=== PATIENT | female | born 1975 | race Caucasian/White ===

== ENCOUNTER 2019-08-29 00:55 | Day surgery (SDC) | payer OTHER, SELFPAY ==
[2019-08-25 10:07] VITALS: BMI 27.6
--- NOTE | 2019-08-29 07:21 | PM.HPGS ---
History of Present Illness History of Present Illness Consent: Risks, benefits, and alternatives have been discussed and questions answered. Patient agrees to proceed with procedure. Chief complaint: cervical stenosis, atypic gland cells, Narrative: Avelina Pierre is a 43 year old female with abnormal pap test. 08/14 reading is SINDY, favor neoplastic and ASC-cannot exclude high grade. Patient last pap was normal 01/26/19. Prior pap 08/26 was SINDY and had colposcopy with ECC that was normal and hysteroscopy that appeared scarred consistent with prior ablation. During that case, there was a perforation so endometrial sampling not possible. Patient did no show then cancel repeat pap 04/27. Patient without complaints and no bleeding. [facility] Past Medical History Medical History (Updated 08/29/19 @ 07:27 by Terri Shaikh MD) Asthma Migraine Status post hysteroscopy Surgical History Surgical History (Updated 08/29/19 @ 07:26 by Terri Shaikh MD) S/P breast augmentation S/P endometrial ablation S/P laparoscopy S/P tubal ligation Meds Home Medications and Allergies Home Medications Medication Instructions Recorded Confirmed Type Adult One Daily Multivitamin 1 tab-cap BYMOUTH DAILY 08/25/19 08/25/19 History albuterol sulfate [ProAir HFA] 1 inh INHALATION DAILY 08/25/19 08/25/19 History aspirin [Adult Low Dose Aspirin] 81 mg PO DAILY 08/25/19 08/25/19 History budesonide-formoterol [Symbicort] 1 puff INHALATION DAILY 08/25/19 08/25/19 History calcium carbonate [Calcium 600] 1 mg PO DAILY 08/25/19 08/25/19 History montelukast 10 mg PO DAILY 08/25/19 08/25/19 History potassium gluconate 550 mg PO DAILY 08/25/19 08/25/19 History Allergies Allergy/AdvReac Type Severity Reaction Status Date / Time hydrocodone Allergy Severe Rash Verified 08/29/19 07:27 tramadol Allergy Severe RASH, Verified 08/29/19 07:27 NAUSEA AND VOMITING Exam Const: General: healthy appearing and alert Orientation/consciousness: patient oriented x3 Resp: Effort & Inspection: normal respiratory effort Auscultation: clear to auscultation bilaterally Cardio: Rate: regular rate Rhythm: regular rhythm GI: GI Palp: Yes Soft to palpation, No Tenderness to palpation present (GI) and No Palpable mass present : External Female Exam: normal external appearance Speculum Exam - Vagina: normal appearance of the vagina and normal vaginal discharge Speculum Exam - Cervix: normal appearance of the cervix Bimanual exam- vagina & uterus: uterine size normal and consistency normal Bimanual Exam- Adnexa, other: normal adnexae and No adnexal tenderness Neuro: General: patient oriented x3 Assessment and Plan Assessment and plan (1) SINDY favor dysplasia: Status: Acute Assessment and Plan: Plan D&C hysteroscopy with ECC. Risks of infection, bleeding, perforation, and possible pathology reviewed. (2) ASCUS favoring dysplasia: Status: Acute Assessment and Plan: Plan colposcopy
[2019-08-29 07:25] VITALS: BMI 28.1
--- NOTE | 2019-08-29 07:30 | P.PNAN_ITS ---
Anes - Initial Pre Proc Eval Procedure: Operation Date: 08/29/19 09:00 Proposed Procedures p Hysteroscopy, Dilation and Curettage, Colposcopy, Endocervical Curettage - Terri Shaikh MD Date/Time: 08/29/19 07:30 Surgeon: Terri Shaikh MD Pre Op Diagnosis: cervical stenosis, atypic gland cells, Patient Data Age: 43 Gender: F Height: 5 ft 4 in Weight: 74.4 kg Allergies Allergy/AdvReac Type Severity Reaction Status Date / Time hydrocodone Allergy Severe Rash Verified 08/29/19 07:27 tramadol Allergy Severe RASH, Verified 08/29/19 07:27 NAUSEA AND VOMITING Home Medications Medication Instructions Recorded Confirmed Type Adult One Daily Multivitamin 1 tab-cap BYMOUTH DAILY 08/25/19 08/25/19 History albuterol sulfate [ProAir HFA] 1 inh INHALATION DAILY 08/25/19 08/25/19 History aspirin [Adult Low Dose Aspirin] 81 mg PO DAILY 08/25/19 08/25/19 History budesonide-formoterol [Symbicort] 1 puff INHALATION DAILY 08/25/19 08/25/19 History calcium carbonate [Calcium 600] 1 mg PO DAILY 08/25/19 08/25/19 History montelukast 10 mg PO DAILY 08/25/19 08/25/19 History potassium gluconate 550 mg PO DAILY 08/25/19 08/25/19 History Patient hx anesthesia problems: none Family hx anesthesia problems: none [facility] Past Medical History Medical History (Updated 08/29/19 @ 07:27 by Terri Shaikh MD) Asthma Migraine Status post hysteroscopy Surgical History Surgical History (Updated 08/29/19 @ 07:26 by Terri Shaikh MD) S/P breast augmentation S/P endometrial ablation S/P laparoscopy S/P tubal ligation Anes - Eval Final PreProcedure Day of Procedure 08/29/19 07:30 Patient weight: normal Heart: regular rate and rhythm Lungs: clear to auscultation Airway: Mallampati scale class II Neurological: alert and oriented Last oral intake: >/= 8 hours ASA classification: II Emergent: no Anesthetic plan: proceed Anesthesia type and monitoring: general GIVS Informed Consent: The patient's anesthetic plan and its attendant risks and benefits were discussed with the patient/family/POA. Questions were solicited and answers provided to the satisfaction of the patient/family/POA.
[2019-08-29 07:45] VITALS: BP 126/84; PULSE 87; RESP 16; TEMP 36.4; O2SAT 99
[2019-08-29] MEDS: LACTATED RINGERS 1,000 ML 30 ML IV CONT (07:45)
--- NOTE | 2019-08-29 08:48 | SUR.OPER ---
EBL:10CC
--- NOTE | 2019-08-29 08:52 | PM.OP ---
Procedure Note - Brief Procedure Note - Brief Date of procedure: 08/29/19 Pre-op diagnosis: cervical stenosis, atypic gland cells, SINDY, favor neoplasia ASC-r/o high grade Post-op diagnosis: same Procedure performed: colposcopy; ECC; hysteroscopy with D&C Anesthesia: MAC and local Surgeon: Terri Shaikh MD Estimated blood loss (mL): 5 Drains: No Packing: No Pathology: yes (cervical biopsy at 500; ECC; endometrial curettings) Complications: No immediate complications Condition: stable Disposition: PACU Findings: colposcopy with AWE inside TZ at 500; atrophic and scarred endometrium consistent with pior ablation
[2019-08-29 08:57] VITALS: BP 119/73; PULSE 80; RESP 16; O2SAT 99
[2019-08-29 09:25] VITALS: BP 111/93; PULSE 73; RESP 16; O2SAT 99
[2019-08-29 09:35] VITALS: BP 116/75; PULSE 68; RESP 16
--- NOTE | 2019-08-29 09:40 | OP_ITS ---
DATE OF PROCEDURE: 08/29/2019 PREOPERATIVE DIAGNOSIS: Atypical glandular cells favor neoplasia and atypical squamous cells, cannot rule out high-grade dysplasia on most recent Pap test. POSTOPERATIVE DIAGNOSIS: Atypical glandular cells favor neoplasia and atypical squamous cells, cannot rule out high-grade dysplasia on most recent Pap test. PROCEDURE: 1. Colposcopy. 2. Endocervical curettings. 3. Hysteroscopy with D and C. ANESTHESIA: MAC and local. FINDINGS: Colposcopy findings reveal the aceto-white epithelium noted inside of the transformation zone at 5 o'clock. There is a slight mosaic pattern as well to this area. The remainder of the cervix appears normal by colposcopy exam. Entire transformation zone is visible. Hysteroscopic findings reveal atrophic and scarred endometrium with no lesions. ESTIMATED BLOOD LOSS: 5 cc. PATHOLOGY: Colposcopic biopsy of the cervix at 5 o'clock, endocervical curettings, endometrial curettings. DESCRIPTION OF PROCEDURE: The patient was taken to the operating room, placed in the dorsal lithotomy position. She was prepped and draped in usual sterile fashion. Externally, the bivalved speculum was placed in the vagina. Cervix was swabbed with acetic acid and inspected with the colposcope. Abnormalities as above. Biopsy was taken at 5 o'clock. The endocervical curettings were taken. The cervix to the internal os was dilated. The hysteroscope was placed. The internal os was visible and the camera was able to be guided directly into the internal os. The above-stated findings were noted with no lesions. Hysteroscope was removed. The small curette is used to sharply curette the endometrium. Minimal tissue was obtained consistent with the appearance. All instruments were then removed. The patient was taken to Recovery in stable condition. D I MT: Ledy LOPEZ
== END 2019-08-29 09:44 | disposition home or self-care (01) ==
PROVIDERS: PCP Family Medicine; Visit Provider Obstetrics & Gynecology Gynecology
PROC: 0U5B8ZZ Destruction of Endometrium, Via Natural or Artificial Opening Endoscopic (ICD-10-PCS; CPT 58563; principal; 2019-08-29 09:00)
DX: N87.0 Mild cervical dysplasia (principal); J45.909 Unspecified asthma, uncomplicated; Z79.82 Long term (current) use of aspirin
CPT/HCPCS: 57454; 58558; 88305; A9270; J1100; J2250; J2405; J2704; J3010; J7030; J7120

== ENCOUNTER → 2020-04-08 13:12 | Outpatient (CLI) | payer OTHER, SELFPAY ==
--- NOTE | ~2020-04-08 | MM_ITS ---
EXAMINATION: MM scrn crow implant BI w juany HISTORY: Screening mammogram TECHNIQUE: Craniocaudal and mediolateral oblique 3-D tomosynthesis images with implant displacement a nd synthetic 2-D images were generated. Craniocaudal and mediolateral oblique views of the breasts wi thout implant displacement were obtained using full field digital mammography. CAD analysis was submi tted and interpreted. COMPARISON: 09/26/2018, 09/09/2016 bilateral implant digital screening mammogram examinations BREAST PARENCHYMAL COMPOSITION: There are scattered areas of fibroglandular density. FINDINGS: Status post bilateral augmentation mammoplasty. There is no evidence of suspicious mass, ca lcification, or architectural distortion to suggest malignancy in either breast. There has been no lange spicious interval change. IMPRESSION: 1. No mammographic evidence of malignancy. 2. Recommend routine screening mammography in one year. BI-RADS Category 1: Negative Reviewed, dictated and finalized at location A. [employer]
== END ==
PROVIDERS: PCP Family Medicine; Visit Provider Obstetrics & Gynecology Gynecology
DX: Z12.31 Encounter for screening mammogram for malignant neoplasm of breast (principal)
CPT/HCPCS: 77063; 77067

== ENCOUNTER 2021-10-12 17:34 | Inpatient (IN) | payer OTHER, SELFPAY ==
[2021-10-12] VITALS (11 sets, daily range): BP systolic 112–141; BP diastolic 53–86; PULSE 89–106; RESP 18–23; TEMP 36.4–36.7; O2SAT 95–100; BMI 28.4
--- NOTE | ~2021-10-12 | CT_ITS ---
EXAMINATION: CT abdomen pelvis wo con DATE: 10/12/2021 18:43 INDICATION: low abd pain, leukocytosis TECHNIQUE: Computed tomography (CT) of the abdomen and pelvis was performed without intravenous contr ast. Automated exposure control and iterative reconstruction technique were employed. The dose-length product was 606.00 mGy-cm. COMPARISON: None FINDINGS: Lower thorax: Unremarkable Liver: Normal. Biliary/Gallbladder: No bile duct dilation. Pancreas: No mass or duct dilation. Spleen: Normal. Adrenals:No mass. Kidneys: No mass, stone, or hydronephrosis. GI tract: No small or large bowel dilation. The appendix is dilated up to 1.5 cm in maximum diameter and contains an appendicolith, with mild surrounding inflammatory change. Mesentery/Peritoneum: No ascites, mass, or free air. Retroperitoneum: No mass. Pelvis: Uterus is not confidently visualized, may be due to lack of contrast or prior surgery. 4 cm s imple appearing right adnexal cyst. Soft Tissues: Soft tissues and body wall unremarkable. Bones: No acute osseous finding. IMPRESSION: Acute appendicitis. 4 cm simple appearing right adnexal cyst, consider outpatient pelvic ultrasound f or further characterization. Reviewed, dictated and finalized at location K. IMPRESSION: Acute appendicitis. 4 cm simple appearing right adnexal cyst, consider outpatie nt pelvic ultrasound for further characterization.
--- NOTE | ~2021-10-12 | XR_ITS ---
EXAMINATION: XR abdomen obstructive series DATE: 10/16/2021 06:39 INDICATION: Emesis. Nausea. TECHNIQUE: Upright and supine views of the abdomen on 3 radiographs were obtained. COMPARISON: CT abdomen and pelvis 10/12/2021 FINDINGS: There are multiple dilated loops of small bowel. The colon is normal in caliber. No free in traperitoneal gas. There is a surgical drain overlying the pelvis. There is mild atelectasis at the l danuta bases. Breast implants are noted. IMPRESSION: 1. Dilated small bowel, likely adynamic ileus. Reviewed, dictated and finalized at location A.
--- NOTE | ~2021-10-12 | US_ITS ---
US pelvic complete w TV 10/13/2021 08:31 Indication: Right ovarian cyst. Procedure: High-resolution pelvic ultrasound utilizing transabdominal and transvaginal technique Comparison: CT dated 10/12/2021 Findings: Uterus is surgically absent. Right ovary measures 4.3 x 6 x 4.4 cm with multiple complicate d cysts, likely functional. The largest cystic component measures up to 4 cm. Small amount of free fl uid in the right adnexa. The left ovary is not visualized. Impression: 1: Enlarged right ovary containing complicated cysts, largest measuring up to 4 cm, likely functional . Recommend follow-up ultrasound in 6-8 weeks to assess for resolution. Reviewed, dictated and finalized at location B. Impression: 1: Enlarged right ovary containing complicated cysts, largest measuring up to 4 cm, likely functional. Recommend follow-up ultrasound in 6-8 weeks to assess f or resolution.
[2021-10-12 18:04] LABS: Alanine Aminotransferase 21 U/L (6-35); Albumin Level 4.5 g/dL (3.5-5.1); Alkaline Phosphatase 52 U/L (38-126); Anion Gap 9 mmol/L (8-16); Aspartate Amino Transferase 22 U/L (14-36); Bilirubin,Total 0.9 mg/dL (0.2-1.3); Blood Urea Nitrogen 6 mg/dL (7-17); Calcium 8.8 mg/dL (8.4-10.2); Carbon Dioxide 27 mmol/L (22-30); Chloride 98 mmol/L (98-107); Estimated CRCL calculation 77 ml/min; Estimated Glomerular Filt Rate > 60; Glucose 135 mg/dL (65-110); Lipase 32 U/L (23-300); Potassium 3.7 mmol/L (3.4-5.0); Sodium 134 mmol/L (137-145)
[2021-10-12 18:16] LABS: Basophils Percent Auto 0.2 % (0.2-1.2); Eosinophils Percent Auto 0.1 % (0-4.4); Hemoglobin 14.4 g/dL (12.0-15.0); Immature Granulocyte Absolute 0.08 K/mm3 (0.00-0.031); Immature Granulocyte Percent A 0.5 % (0-0.5); Lymphocytes Absolute Auto 0.76 K/mm3 (0.9-3.2); Lymphocytes Percent Auto 4.5 % (18.3-44.2); Mean Corpuscular HGB Conc 33.5 g/dl (32-36); Mean Corpuscular Hemoglobin 33.2 pg (26-34); Mean Corpuscular Volume 99.1 fl (80-100); Mean Platelet Volume 11.3 fl (7.4-10.4); Monocytes Absolute Auto 1.3 K/mm3 (0.1-0.6); Monocytes Percent Auto 7.5 % (2.6-8.5); Neutrophils Absolute Auto 14.9 K/mm3 (1.3-6.7); Neutrophils Percent Auto 87.2 % (45.5-73.1); Platelet Count Result 239 k/mm3 (150-375); Red Blood Count 4.34 M/mm3 (4.2-5.4); Red Cell Distribution Width 11.9 % (11.5-14.5)
[2021-10-12 18:28] LABS: Platelet Estimate Adequate (Adequate); Stomatocytes 1+ (NORMAL)
[2021-10-12] MEDS: SODIUM CHLORIDE 0.9% IV 1,000 ML 999 ML IV CONT ×2 (19:03→22:06)
[2021-10-12] MEDS: MORPHINE SULFATE (*CRX) 4 MG/ML INJ IV PUSH ×2 (19:04→22:59)
[2021-10-12] MEDS: ONDANSETRON INJ 4 MG/2 ML VIAL IV PUSH (19:04)
--- NOTE | 2021-10-12 19:09 | ED.ABDPAIN ---
HPI - Abdominal Pain General Chief Complaint: Abdominal Pain <JOSE House Last Filed: 10/12/21 21:39> Stated Complaint: abd pain <JOSE House Last Filed: 10/12/21 21:39> Time Seen by Provider: 10/12/21 18:14 <JOSE House Last Filed: 10/12/21 21:39> Source: patient <JOSE House Last Filed: 10/12/21 21:39> Mode of arrival: ambulatory <JOSE House Last Filed: 10/12/21 21:39> Limitations: no limitations <JOSE House Last Filed: 10/12/21 21:39> History of Present Illness HPI narrative: This is a 46-year-old female that presents to the emergency department for right lower quadrant pain. Ongoing over the last day. Associated with nausea and anorexia Denies fever, vomiting, or dysuria. <JOSE House Last Filed: 10/12/21 21:39> Related Data Home Medications: Home Medications Medication Instructions Recorded Confirmed Adult One Daily Multivitamin 1 tab-cap BYMOUTH DAILY 08/25/19 08/29/19 albuterol sulfate 90 mcg/actuation 1 inh inhalation DAILY 08/25/19 08/29/19 aerosol inhaler (ProAir HFA) aspirin 81 mg tablet,delayed 81 mg PO DAILY 08/25/19 08/29/19 release (Adult Low Dose Aspirin) budesonide-formoterol HFA 80 1 puff inhalation DAILY 08/25/19 08/29/19 mcg-4.5 mcg/actuation aerosol inhaler (Symbicort) calcium carbonate 600 mg calcium 1 mg PO DAILY 08/25/19 08/29/19 (1,500 mg) tablet (Calcium) montelukast 10 mg tablet 10 mg PO DAILY 08/25/19 08/29/19 potassium gluconate 550 mg (90 mg) 550 mg PO DAILY 08/25/19 08/29/19 tablet <JOSE House Last Filed: 10/12/21 21:39> Allergies/Adverse Reactions: Allergies Allergy/AdvReac Type Severity Reaction Status Date / Time hydrocodone Allergy Severe Rash Verified 10/12/21 17:43 tramadol Allergy Severe RASH, Verified 10/12/21 17:43 NAUSEA AND VOMITING <Demi Lee PA-C - Last Filed: 10/12/21 21:39> Review of Systems Review of Systems: CONSTITUTIONAL: Denies fever GASTROINTESTINAL: Reports abdominal pain, nausea. Denies vomiting, or diarrhea. GENITOURINARY: Denies dysuria or hematuria. <Demi Lee PA-C - Last Filed: 10/12/21 21:39> All systems reviewed & are unremarkable except as noted in HPI and below <Demi Lee PA-C - Last Filed: 10/12/21 21:39> PMFSH Past Medical History Medical History: Medical History (Updated 10/12/21 @ 21:34 by Demi Lee PA-C) Asthma Migraine Status post hysteroscopy <Demi Lee PA-C - Last Filed: 10/12/21 21:39> Surgical History Surgical History: Surgical History (System 10/09/20 @ 10:38 by Yamile Morales) S/P breast augmentation S/P endometrial ablation S/P laparoscopy S/P tubal ligation <Demi Lee PA-C - Last Filed: 10/12/21 21:39> Family History Family History: Family History (System 10/09/20 @ 10:38 by Yamile Morales) Grandparent Family history of pancreatic cancer Family history of malignant neoplasm of uterus Other Family history of malignant neoplasm of breast <Demi Lee PA-C - Last Filed: 10/12/21 21:39> Social History Social History: Social History (System 10/09/20 @ 10:38 by Yamile Morales) Alcohol intake: current <Demi Lee PA-C - Last Filed: 10/12/21 21:39> Exam Narrative: GENERAL: Well-appearing, well-nourished, and in mild acute distress due to pain. HEAD: Normocephalic, atraumatic. EYES: EOMI. CHEST: Clear to auscultation. No respiratory distress. No wheezes rales or rhonchi HEART: Regular rate and rhythm. No murmur heard. Normal peripheral pulses. ABDOMEN: Soft, nondistended, normal active bowel sounds. Tender to palpation in the right lower quadrant with guarding EXTREMITIES: Normal range of motion. No edema. SKIN: Warm, dry, no rash. NEURO: No focal deficits. Alert and oriented x3. PSYCH: Normal mood and affect <Demi Trejo
[2021-10-12] MEDS: HYDROmorphone HCL INJ (*CRX) 1 MG/ML SYR 0.5 MG IV PUSH ×2 (19:22→21:26)
[2021-10-12 21:40] LABS: Appearance Urine Clear (Clear); Bilirubin Urine Negative (Negative); Blood Urine Negative (Negative); Color Urine Yellow (Yellow); Glucose Urine UA Negative (Negative); Ketones Urine 3+ mg/dL (Negative); Leukocyte Esterase Ur Negative LEU/UL (Negative); Nitrate Urine Negative (Negative); Protein Urine Negative (Negative); Urobilinogen Urine 0.2 mg/dL (<2.0)
[2021-10-12 21:48] LABS: Mucus Urine Rare /lpf; RBC Urine 0-2 /hpf (0-2); Squamous Epithelial Cell Urine Occasional /hpf (Few); WBC Urine 0-3 /hpf
[2021-10-12 21:52] LABS: Add Urine Microscopic? YES
--- NOTE | 2021-10-12 22:54 | ADMGEN ---
This patient, Avelina Pierre, was admitted to Medical Room 249-01. Patient/family oriented to hospital policies and general routines including ID bracelet, bed and alarms, visiting hours, pain management, procedures, bathroom and other care routines, personal items, smoking policy, room service/diet, and visiting hours. Information on how to activate the Rapid Response Team has been discussed. Patient/Family are encouraged to report perceived risks to care and to ask questions if they do not understand what they are told or what they should do.
[2021-10-12] MEDS: SODIUM CHLORIDE 0.9% IV 1,000 ML 125 ML IV CONT (23:10)
[2021-10-13] VITALS (15 sets, daily range): BP systolic 110–138; BP diastolic 65–87; PULSE 87–112; RESP 13–18; TEMP 34.1–36.9; O2SAT 91–100
[2021-10-13] MEDS: MORPHINE SULFATE (*CRX) 4 MG/ML INJ IV PUSH ×6 (00:03→23:46)
--- NOTE | 2021-10-13 03:54 | PC.NURSE ---
DR PARTIDA NOTIFIED PT INCREASED PAIN AND DISCOMFORT, BLOATING NOTED, VERY RARE GIRGLE NOTED IN LEFT LOWER QUADRANT, ABSENT IN ALL OTHER QUADRANTS, ZOFRAN ORDERED
[2021-10-13 05:47] LABS: Hematocrit 39.1 % (37.0-47.0); Hemoglobin 12.8 g/dL (12.0-15.0); Mean Corpuscular HGB Conc 32.7 g/dl (32-36); Mean Corpuscular Volume 100.8 fl (80-100); Mean Platelet Volume 11.2 fl (7.4-10.4); Platelet Count Result 213 k/mm3 (150-375); Red Blood Count 3.88 M/mm3 (4.2-5.4); Red Cell Distribution Width 12.2 % (11.5-14.5); White Blood Count 8.9 K/mm3 (4.5-10.0)
[2021-10-13 06:00] LABS: Anion Gap 6 mmol/L (8-16); Blood Urea Nitrogen 5 mg/dL (7-17); Calcium 7.1 mg/dL (8.4-10.2); Carbon Dioxide 24 mmol/L (22-30); Chloride 104 mmol/L (98-107); Estimated CRCL calculation 91 ml/min; Estimated Glomerular Filt Rate > 60; Glucose 124 mg/dL (65-110); Potassium 3.5 mmol/L (3.4-5.0); Sodium 134 mmol/L (137-145)
[2021-10-13 07:26] LABS: Band Neutrophils Percent 20 % (0-6); Lymphocytes Absolute Manual 0.71 K/mm3 (1.1-4.5); Lymphocytes Percent Manual 8 % (18-44); Monocytes Absolute Manual 0.26 K/mm3 (0.1-0.90); Monocytes Percent Manual 3 % (3-9); Neutrophils Absolute Manual 7.92 K/mm3 (1.7-7.2); Neutrophils Percent Manual 69 % (46-73); Platelet Estimate Adequate (Adequate); Total Cells Counted 100
[2021-10-13] MEDS: SODIUM CHLORIDE 0.9% IV 1,000 ML 125 ML IV CONT ×2 (08:35→23:42)
[2021-10-13] MEDS: ALBUTEROL SULFATE (*SP) AEROSOL 1 PUFF 2 PUFF INHALATION (08:46)
--- NOTE | 2021-10-13 09:02 | PM.CNCAR ---
History of Present Illness History of Present Illness Consult date/time: 10/13/21 09:02 Consult reason: Other (ovarian cyst) Reason For Visit: Acute Appendicitis Narrative: Patient is visiting from [place] and had the onset of pain approximately 2 days prior. Workup revealed a 4cm right ovarian cyst. Ultrasound this morning shows a simple ovarian cyst measuring 4cm as well as several subcentimeter cysts. Most likely functional. Dr. Maza plans to proceed with appendectomy therefore I will evaluate the right ovary and drain the functional cyst due to its size. This additional plan was discussed with the patient. It was recommended to leave the ovary in place but there is a small chance of bleeding from the ovary that would require removal. Additional risks are minimal to the planned appendectomy. Patient voiced understanding and agrees to proceed. [facility] Past Medical History Medical History (Updated 10/12/21 @ 21:34 by Demi Lee PA-C) Asthma Migraine Status post hysteroscopy Surgical History Surgical History (System 10/09/20 @ 10:38 by Yamile Morales) S/P breast augmentation S/P endometrial ablation S/P laparoscopy S/P tubal ligation Family History Family History Grandparent Family history of pancreatic cancer Family history of malignant neoplasm of uterus Other Family history of malignant neoplasm of breast Social History Social History (System 10/09/20 @ 10:38 by Yamile Morales) Smoking status: Never smoker Alcohol intake: current Drinks per week: 3 Substance use: never Substance use type: does not use Spiritual care concerns: No Meds Home Medications and Allergies Home Medications Medication Instructions Recorded Confirmed Type Adult One Daily Multivitamin 1 tab-cap BYMOUTH DAILY 08/25/19 10/12/21 History albuterol sulfate 90 mcg/actuation 1 inh inhalation DAILY 08/25/19 10/12/21 History aerosol inhaler (ProAir HFA) aspirin 81 mg tablet,delayed 81 mg PO DAILY 08/25/19 10/12/21 History release (Adult Low Dose Aspirin) budesonide-formoterol HFA 80 1 puff inhalation DAILY 08/25/19 10/12/21 History mcg-4.5 mcg/actuation aerosol inhaler (Symbicort) calcium carbonate 600 mg calcium 1 mg PO DAILY 08/25/19 10/12/21 History (1,500 mg) tablet (Calcium) montelukast 10 mg tablet 10 mg PO DAILY 08/25/19 10/12/21 History potassium gluconate 550 mg (90 mg) 550 mg PO DAILY 08/25/19 10/12/21 History tablet Allergies Allergy/AdvReac Type Severity Reaction Status Date / Time hydrocodone Allergy Severe Rash Verified 10/12/21 17:43 tramadol Allergy Severe RASH, Verified 10/12/21 17:43 NAUSEA AND VOMITING Vital Signs Vital Signs - 24 hr 10/12/21 17:40 10/12/21 19:30 10/12/21 19:31 Temperature 97.6 F Pulse Rate 106 H 90 89 Respiratory Rate 18 22 H 22 H Blood Pressure 132/84 141/86 H Pulse Oximetry 100 99 99 Oxygen Delivery Room Air 10/12/21 19:45 10/12/21 19:46 10/12/21 20:00 Temperature Pulse Rate 104 H 102 H 94 Respiratory Rate 22 H 20 19 Blood Pressure 112/53 L Pulse Oximetry 97 100 95 Oxygen Delivery 10/12/21 20:01 10/12/21 20:15 10/12/21 20:16 Temperature Pulse Rate 95 93 95 Respiratory Rate 21 H 23 H 21 H Blood Pressure 129/76 136/80 Pulse Oximetry 95 98 97 Oxygen Delivery 10/12/21 22:58 10/12/21 22:50 10/13/21 04:23 Temperature 98.1 F 98.5 F Pulse Rate 100 99 Respiratory Rate 20 18 Blood Pressure 127/84 120/74 110/68 Pulse Oximetry 98 99 95 Oxygen Delivery 10/13/21 08:47 Temperature Pulse Rate Respiratory Rate Blood Pressure Pulse Oximetry 95 Oxygen Delivery Room Air Results Labs and Meds Result diagrams: 10/13/21 05:23 10/13/21 05:23 Lab results: Cardiac Enzymes 10/12/21 Range/Units 17:48 AST 22 (14-36) U/L CBC 10/12/21 10/13/21 Range/Units 17:48 0
--- NOTE | 2021-10-13 09:20 | WPDCN ---
Assessment and Plan Assessment and plan (1) Cyst of right ovary: Code(s): N83.201 - Unspecified ovarian cyst, right side Status: Acute Assessment and Plan: Plan is to incise and drain the right ovarian cyst laparoscopically after Dr. Maza removes the appendix (2) Acute appendicitis: Qualifiers: Acute appendicitis type: with localized peritonitis Appendicitis abscess presence: without abscess Appendicitis gangrene presence: without gangrene Appendicitis perforation presence: without perforation Qualified Code(s): K35.30 - Acute appendicitis with localized peritonitis, without perforation or gangrene Code(s): K35.80 - Unspecified acute appendicitis Status: Acute Assessment and Plan: Appendectomy planned per Dr. Maza [facility] Data of Consult Date/Time: 10/13/21 09:20 Requesting Physician: Leighton Maza MD Primary Care Provider: Ravi Osborne, Consult Narrative Reason for consult: Ovarian cyst Narrative: Avelina Pierre is a 46 year old female admitted to Dr. Maza for appendectomy today. On CT scan and the patient had a right ovarian cyst noted. Pelvic ultrasound reveals a simple 4cm ovarian cyst with several less than 1cm ovarian cyst. Typical management would be to repeat the ultrasound in 6 weeks however since the patient is going to operating room the plan is for incision and drainage of the 4cm simple cyst. This plan was reviewed with the patient and she states understanding and agrees to proceed. Possible risk of needing to remove the ovary secondary to bleeding was reviewed. Other risks are minimal as she is already having an appendectomy and those risks are the same. The patient is well-known to me however she did recently move to [place] and is in town visiting. [facility] Past Medical History Medical History Adenocarcinoma in situ (AIS) of uterine cervix Asthma HTN (hypertension) Interstitial cystitis Migraine Status post hysteroscopy Surgical History Surgical History S/P breast augmentation S/P endometrial ablation S/P laparoscopy S/P tubal ligation Status post laparoscopic assisted vaginal hysterectomy Secondary to adenocarcinoma in-situ 2019 Family History Family History Grandparent Family history of pancreatic cancer Family history of malignant neoplasm of uterus Other Family history of malignant neoplasm of breast Social History Social History Smoking status: Never smoker Alcohol intake: current Drinks per week: 3 Substance use: never Substance use type: does not use Spiritual care concerns: No Meds Home Medications and Allergies Home Medications Medication Instructions Recorded Confirmed Type Adult One Daily Multivitamin 1 tab-cap BYMOUTH DAILY 08/25/19 10/12/21 History albuterol sulfate 90 mcg/actuation 1 inh inhalation DAILY 08/25/19 10/12/21 History aerosol inhaler (ProAir HFA) aspirin 81 mg tablet,delayed 81 mg PO DAILY 08/25/19 10/12/21 History release (Adult Low Dose Aspirin) budesonide-formoterol HFA 80 1 puff inhalation DAILY 08/25/19 10/12/21 History mcg-4.5 mcg/actuation aerosol inhaler (Symbicort) calcium carbonate 600 mg calcium 1 mg PO DAILY 08/25/19 10/12/21 History (1,500 mg) tablet (Calcium) montelukast 10 mg tablet 10 mg PO DAILY 08/25/19 10/12/21 History potassium gluconate 550 mg (90 mg) 550 mg PO DAILY 08/25/19 10/12/21 History tablet Allergies Allergy/AdvReac Type Severity Reaction Status Date / Time hydrocodone Allergy Severe Rash Verified 10/12/21 17:43 tramadol Allergy Severe RASH, Verified 10/12/21 17:43 NAUSEA AND VOMITING Vital Signs Vital Signs - 24 hr 10/12/21 17:40 10/12/21 19:30 06/
[2021-10-13] MEDS: CHLORHEXIDINE GLUCONATE 4% SOL 120 ML BTL 1 APPLIC TOPICAL (10:18)
--- NOTE | 2021-10-13 10:34 | PM.IMHP ---
H&P: HPI History of Present Illness Date/Time: 10/13/21 10:34 Chief Complaint: Right lower quadrant abdominal pain Narrative: This is a 46-year-old female who presented to the emergency department with complaints of right lower quadrant abdominal pain starting 2 nights ago. She reports eating dinner Wednesday night and shortly following, noticed an onset of abdominal pain. Initially, she thought this was gas pains and tried taking Gas-X. Her pain continued to worsen despite the medication. She had associated nausea, but no vomiting. She attempted to go to Urgent Care, but was ultimately sent to the ER yesterday for further evaluation. CT scan of the abdomen and pelvis showed acute appendicitis with an appendicolith in the appendix. Also noted is a 4 cm right adnexal cyst. [place] [address]. Our service was consulted by the ED physician and she was admitted for treatment and surgical evaluation. She was started on IV Zosyn, IV fluids, analgesics, and made NPO. She is now seen on the medical floor. She is still complaining of right lower quadrant abdominal pain but reports this improves with pain medication. No other complaints at this time. Denies a history of having a colonoscopy in the past Review of Systems Review of Systems: All systems reviewed & are unremarkable except as noted in HPI and below Constitutional: Constitutional: Reports as per HPI, Denies chills, Denies fatigue and Denies fever(s) Eyes: Eyes: Reports no additional eye complaints ENT: Reports system reviewed and no additional complaints, except as documented and Reports Normal hearing present Cardiovascular: Cardiovascular: Reports no additional cardiovascular complaints, Denies chest pain and Denies leg edema Respiratory: Respiratory: Reports no additional respiratory complaints, Denies cough and Denies dyspnea Gastrointestinal: Gastrointestinal: Reports as per HPI, Reports no additional gastrointestinal complaints, Reports abdominal pain, Denies melena, Denies hematochezia, Denies change in bowel habits, Denies constipation, Denies diarrhea, Reports nausea and Denies vomiting Genitourinary: Genitourinary: Reports no additional female genitourinary complaints and Denies dysuria Musculoskeletal: Musculoskeletal: Reports no additional musculoskeletal complaints and Denies joint swelling Integumentary/Breasts: Skin/Breast: Reports system reviewed and no additional complaints, except as docu Neurologic: Reports system reviewed and no additional complaints, except as documented, Denies dizziness, Denies focal weakness, Denies numbness and Denies tingling PMFSH Past Medical History Medical History (Updated 10/13/21 @ 10:44 by KHUSHI Shoemaker) Adenocarcinoma in situ (AIS) of uterine cervix Asthma HTN (hypertension) Interstitial cystitis Migraine Status post hysteroscopy Surgical History Surgical History S/P breast augmentation S/P endometrial ablation S/P laparoscopy S/P tubal ligation Status post laparoscopic assisted vaginal hysterectomy Secondary to adenocarcinoma in-situ 2019 Family History Family History Grandparent Family history of pancreatic cancer Family history of malignant neoplasm of uterus Other Family history of malignant neoplasm of breast Social History Social History Smoking status: Never smoker Alcohol intake: current Drinks per week: 3 Substance use: never Substance use type: does not use Additional living arrangements comments: Recently moved to floor about 2 months ago. Here visiting her sister. Occupation/Education: occupation Additional occupation/education comments: Works for [employer]. Gender identity (if verbalized by the patient): Female Spiritual care concerns: No Meds Home Medicat
--- NOTE | 2021-10-13 11:05 | PC.NURSE ---
Patient to OR per bed 10/13/21 [id number]
[2021-10-13] MEDS: HYDROmorphone HCL INJ (*CRX) 1 MG/ML SYR IV PUSH (11:18)
--- NOTE | 2021-10-13 11:29 | WPDHPUPDATE1 ---
History and Physical Update Update Date/Time: 10/13/21 11:29 History and Physical has been reviewed, including an updated exam of the patient. There are NO changes in the patient's condition. Risks, benefits, and alternatives have been discussed and questions answered. Patient agrees to proceed with procedure.
--- NOTE | 2021-10-13 11:53 | WPDANESEPPF ---
Anes - Initial Pre Proc Eval Procedure: Operation Date: 10/13/21 14:00 Proposed Procedures p Laparoscopic Appendectomy, Possible Open - Leighton Maza MD s Laparoscopic Drainage Right Ovarian Cyst - Terri Shaikh MD Date/Time: 10/13/21 11:53 Surgeon: Leighton Maza MD Pre Op Diagnosis: Acute Appendicitis Patient Data Age: 46 Gender: F Height: 1.57 m Weight: 70.5 kg Last Vital Signs Temp 36.7 C 10/13/21 11:11 Pulse 101 H 10/13/21 11:11 Resp 16 10/13/21 11:11 BP 137/87 10/13/21 11:11 Pulse Ox 97 10/13/21 11:11 O2 Del Method Room Air 10/13/21 11:11 Allergies Allergy/AdvReac Type Severity Reaction Status Date / Time hydrocodone Allergy Severe Rash Verified 10/12/21 17:43 tramadol Allergy Severe RASH, Verified 10/12/21 17:43 NAUSEA AND VOMITING Home Medications Medication Instructions Recorded Confirmed Type Adult One Daily Multivitamin 1 tab-cap BYMOUTH DAILY 08/25/19 10/12/21 History albuterol sulfate 90 mcg/actuation 1 inh inhalation DAILY 08/25/19 10/12/21 History aerosol inhaler (ProAir HFA) aspirin 81 mg tablet,delayed 81 mg PO DAILY 08/25/19 10/12/21 History release (Adult Low Dose Aspirin) budesonide-formoterol HFA 80 1 puff inhalation DAILY 08/25/19 10/12/21 History mcg-4.5 mcg/actuation aerosol inhaler (Symbicort) calcium carbonate 600 mg calcium 1 mg PO DAILY 08/25/19 10/12/21 History (1,500 mg) tablet (Calcium) montelukast 10 mg tablet 10 mg PO DAILY 08/25/19 10/12/21 History potassium gluconate 550 mg (90 mg) 550 mg PO DAILY 08/25/19 10/12/21 History tablet Laboratory Tests 10/12/21 10/12/21 10/12/21 17:48 17:48 21:31 WBC 17.0 K/mm3 H K/mm3 (4.5-10.0) RBC 4.34 M/mm3 M/mm3 (4.2-5.4) Hgb 14.4 g/dL g/dL (12.0-15.0) Hct 43.0 % % (37.0-47.0) MCV 99.1 fl fl (80-100) MCH 33.2 pg pg (26-34) MCHC 33.5 g/dl g/dl (32-36) RDW 11.9 % % (11.5-14.5) Plt Count 239 k/mm3 k/mm3 (150-375) MPV 11.3 fl H fl (7.4-10.4) Immature Gran % (Auto) 0.5 % % (0-0.5) Neut % (Auto) 87.2 % H % (45.5-73.1) Lymph % (Auto) 4.5 % L % (18.3-44.2) [place] % (Auto) 7.5 % % (2.6-8.5) Eos % (Auto) 0.1 % % (0-4.4) Baso % (Auto) 0.2 % % (0.2-1.2) Lymph # (Auto) 0.76 K/mm3 L K/mm3 (0.9-3.2) [place] # (Auto) 1.3 K/mm3 H K/mm3 (0.1-0.6) Eos # (Auto) 0.0 K/mm3 K/mm3 (0-0.3) Baso # (Auto) 0.0 K/mm3 K/mm3 (0.0-0.1) Abs Immat Gran (auto) 0.08 K/mm3 H K/mm3 (0.00-0.031) Absolute Neuts (auto) 14.9 K/mm3 H K/mm3 (1.3-6.7) Absolute Nucleated RBC 0.0 K/mm3 K/mm3 (0.0-0.012) Total Counted Neutrophils % (Manual) Band Neutrophils % Lymphocytes % (Manual) Monocytes % (Manual) Nucleated RBC % 0.0 % % (0.0-0.2) Abs Neuts (Manual) Abs Lymphs (Manual) Abs Monocytes (Manual) Platelet Estimate Adequate (Adequate) Stomatocytes 1+ (NORMAL) Sodium 134 mmol/L L mmol/L (137-145) Potassium 3.7 mmol/L mmol/L (3.4-5.0) Chloride 98 mmol/L mmol/L (98-107) Carbon Dioxide 27 mmol/L mmol/L (22-30) Anion Gap 9 mmol/L mmol/L (8-16) BUN 6 mg/dL L mg/dL (7-17) Creatinine 0.70 mg/dL mg/dL (0.7-1.0) Estim Creat Clear Calc 77 ml/min ml/min Estimated GFR > 60 (59 - ) Glucose 135 mg/dL H mg/dL (65-110) Calcium 8.8 mg/dL mg/dL (8.4-10.2) Total Bilirubin 0.9 mg/dL mg/dL (0.2-1.3) AST 22 U/L U/L (14-36) ALT 21 U/L U/L (6-35) Alkaline Phosphatase 52 U/L U/L (38-126) Total Protein 8.0 g/dL g/dL (6.3-8.2) Albumin 4.5 g
[2021-10-13] MEDS: LIDO 2%/EPINEPHRINE 1:100,000 20 ML VIAL INFILTRATE (12:06)
[2021-10-13] MEDS: LACTATED RINGERS 1,000 ML 30 ML IV CONT ×2 (12:08→14:06)
[2021-10-13] MEDS: SCOPOLAMINE 1.5 MG PATCH TRANSDERM (13:02)
--- NOTE | 2021-10-13 14:03 | W.PM.PROC2 ---
Procedure Note - Detailed Date of Procedure 10/13/21 Pre-op Diagnosis Acute Appendicitis with perforation and localized peritonitis Post-op Diagnosis Same Procedure Performed laparoscopic appendectomy Surgeon Leighton Maza MD Shoe Worker Yesika LYLES. OR Special Education Case Manager Anesthesia General Indications Patient presented with CT scan showing significantly dilated appendix with surrounding stranding and an appendicolith. Therefore, in view of the patient's continuing pain and increased risk of perforation it was recommended that the patient have an laparoscopic appendectomy. She was on antibiotics until she went to surgery and because of the findings we will continue them. Findings Apparent localized peritonitis lateral to and inferior to the cecum and ileum against the right pelvic sidewall near the right ovary and tube. There appeared to be some full-thickness necrosis of the appendiceal wall just with observation with a little bit of brownish stool exudate as we removed the appendix. (suspect perforation). There was also some cloudy yellow fluid that escaped from the area of the appendix as we pulled the omentum back from it to see it. Description of Procedure The patient was seen again in the Holding Room. The risks, benefits, complications, treatment options, and expected outcomes were discussed with the patient and/or family. The possibilities of reaction to medication, pulmonary aspiration, perforation of viscus, bleeding, recurrent infection, finding a normal appendix, the need for additional procedures, failure to diagnose a condition, and creating a complication requiring transfusion or operation were discussed. There was concurrence with the proposed plan and informed consent was obtained. The site of surgery was properly noted/marked. The patient was taken to Operating Room, and a time out was preformed which identified this as the proper patient, and the procedure verified as laparoscopic appendectomy, possible open. The patient was placed in the supine position and general anesthesia was induced, along with placement of an orogastric tube, SCD hose, and a Zamora catheter. The abdomen was prepped and draped in a sterile fashion. Anesthesia was asked to place a oral gastric tube and this was placed to suction to empty the stomach. A 5 mm left subcostal incision was made and the peritoneal cavity was accessed using the Veress needle technique. Once the abdomen was insufflated to 14 mmHg pressure a 5 mm XL trocar over the 0? 5 mm scope was carefully twisted into the abdomen via this left subcostal incision site. The pneumoperitoneum was then established to steady pressure of 14 mm Hg. A 12 mm laparoscopic port was placed through a transverse suprapubic incision. An additional 5 mm cannula was then placed through a 5 mm incision at a scar just inferior to her umbilicus where she had had a previous incision for her laparoscopic hysterectomy under direct vision. (examination under the umbilicus showed no adhesions and nothing that we would injure as we placed this. A careful evaluation of the entire abdomen was carried out. The patient was placed in Trendelenburg and left lateral decubitus position. At this point Dr. Eduard de la cruz was present in the OR to examine the right ovary into. Therefore, we then using laparoscopic graspers reposition the omentum which seemed to be covering the entire right lower quadrant extending down into the pelvis. Upon 1st moving this there was a flush out of cloudy yellow fluid consistent with possible perforation. Therefore, I opened the suction house builder we suctioned this away and then were able to reposition both the omentum and any bowel away from the right pelvis. This allowed us to see what appeared to be a normal-appearing ovary with a small cyst on it and tube. There was no 4 cm size cyst. Because the appendix was eventually found to be immediately adjacent to this area I suspect that perhaps the fluid accumulation that
--- NOTE | 2021-10-13 14:36 | SUR.PHASEI ---
1433: Simple mask removed.
[2021-10-13 14:37] LABS: Acetaminophen 24 ug/mL (10-30)
[2021-10-13] MEDS: FLUTICASONE/SALMETEROL 45-21 MCG INHALER 1 PUFF 2 PUFF INHALATION (20:08)
[2021-10-13] MEDS: ACETAMINOPHEN/CODEINE (*CRX) 300/30 MG TABLET 1 TAB PO (20:36)
[2021-10-14] VITALS (10 sets, daily range): BP systolic 118–133; BP diastolic 68–78; PULSE 89–96; RESP 12–18; TEMP 36.7–37.2; O2SAT 95–98
[2021-10-14] MEDS: MORPHINE SULFATE (*CRX) 4 MG/ML INJ IV PUSH ×2 (03:17→06:24)
[2021-10-14 05:32] LABS: Hematocrit 35.9 % (37.0-47.0); Hemoglobin 11.6 g/dL (12.0-15.0); Mean Corpuscular HGB Conc 32.3 g/dl (32-36); Mean Corpuscular Hemoglobin 32.9 pg (26-34); Mean Corpuscular Volume 101.7 fl (80-100); Mean Platelet Volume 10.9 fl (7.4-10.4); Platelet Count Result 183 k/mm3 (150-375); Red Blood Count 3.53 M/mm3 (4.2-5.4); Red Cell Distribution Width 12.6 % (11.5-14.5); White Blood Count 10.4 K/mm3 (4.5-10.0)
[2021-10-14 05:40] LABS: Alanine Aminotransferase 12 U/L (6-35); Albumin Level 2.7 g/dL (3.5-5.1); Alkaline Phosphatase 32 U/L (38-126); Anion Gap 3 mmol/L (8-16); Aspartate Amino Transferase 14 U/L (14-36); Bilirubin,Total 0.4 mg/dL (0.2-1.3); Blood Urea Nitrogen 5 mg/dL (7-17); Calcium 7.4 mg/dL (8.4-10.2); Carbon Dioxide 26 mmol/L (22-30); Chloride 107 mmol/L (98-107); Estimated CRCL calculation 91 ml/min; Estimated Glomerular Filt Rate > 60; Glucose 131 mg/dL (65-110); Potassium 3.5 mmol/L (3.4-5.0); Sodium 136 mmol/L (137-145)
--- NOTE | 2021-10-14 06:59 | W.PM.PROC2 ---
Procedure Note - Detailed Date of Procedure 10/13/21 Pre-op Diagnosis Acute Appendicitis Right ovarian cyst Post-op Diagnosis Same Procedure Performed laparoscopic appendectomy performed by Dr. Maza Surgeon Terri Shaikh MD Anesthesia General Findings minimal right ovary and adhesions with a small hemorrhagic cyst at base right ovary Description of Procedure Please see Dr. Maza's dictation. I did not scrub into the case did provide intraoperative consultation. Once Dr. Maza had freed up the omentum, the right tube and ovary were visible. There were minimal adhesions with the right tube and ovary. There were multiple less than 1cm cyst. There was a small hemorrhagic cyst at the base of the right ovary but this was also small approximately 2 to 3 cm. Decision was made to leave the ovary as is. At this point I left the operating room suite. Estimated Blood Loss 25 IV Fluids 1,200 Urine Output 300
--- NOTE | 2021-10-14 07:29 | PM.GYNPNOP ---
DISH CLOTH INSPECTOR - A/P Postoperative Procedures: Procedures Operation Date: 10/13/21 14:00 Actual Procedure Side Surgeon p Laparoscopic Appendectomy Not Applicable Leighton Maza MD Postoperative day: 1 Postoperative status: other (reviewed op findings and no need for stull installer follow up) Time Spent With Patient Time: Total time spent is greater than 50% in coordination of care (as documented) at patient's floor/unit and/or counseling patient: Time with patient: less than 15 minutes DISH CLOTH INSPECTOR- PN:Subj Post-Op Subjective Date/time seen: 10/14/21 07:29 Subjective: pain is well controlled (fairly controlled) DISH CLOTH INSPECTOR - PN: Obj Data Vital Signs Vital Signs: Vital Signs - 24 hr 10/13/21 08:47 10/13/21 08:34 10/13/21 11:11 Temperature 98.1 F Pulse Rate 101 H Respiratory Rate 16 Blood Pressure 137/87 Pulse Oximetry 95 97 Oxygen Delivery Room Air Room Air Room Air Oxygen Flow Rate 10/13/21 14:06 10/13/21 14:20 10/13/21 14:35 Temperature 97.3 F L Pulse Rate 112 H 105 H 101 H Respiratory Rate 16 17 18 Blood Pressure 138/65 127/74 122/74 Pulse Oximetry 99 100 94 Oxygen Delivery Simple Face Mask Simple Face Mask Room Air Oxygen Flow Rate 8 8 10/13/21 14:50 10/13/21 15:05 10/13/21 15:20 Temperature Pulse Rate 101 H 98 91 Respiratory Rate 13 18 18 Blood Pressure 118/74 118/74 116/73 Pulse Oximetry 93 94 93 Oxygen Delivery Room Air Room Air Room Air Oxygen Flow Rate 10/13/21 16:30 10/13/21 16:00 10/13/21 15:45 Temperature 98.4 F 93.3 F L 97.7 F Pulse Rate 97 97 87 Respiratory Rate 16 16 16 Blood Pressure 117/72 121/72 117/71 Pulse Oximetry 95 96 96 Oxygen Delivery Oxygen Flow Rate 10/13/21 17:28 10/13/21 18:05 10/13/21 20:08 Temperature 98.4 F Pulse Rate 97 Respiratory Rate 16 Blood Pressure 124/79 Pulse Oximetry 98 96 Oxygen Delivery Room Air Room Air Oxygen Flow Rate 10/13/21 20:35 10/14/21 00:51 10/14/21 06:07 Temperature 98.2 F 98.9 F 98.6 F Pulse Rate 100 91 93 Respiratory Rate 16 14 16 Blood Pressure 123/71 118/68 122/75 Pulse Oximetry 91 95 98 Oxygen Delivery Oxygen Flow Rate Intake/Output Intake/Output: Intake & Output 10/11/21 10/12/21 10/13/21 10/14/21 23:59 23:59 23:59 23:59 Intake Total 1150 4465 1615 Output Total 1350 1380 Balance 1150 3115 235 Meds/Results Medications: Active Medications Generic Name Dose Route Start Last Admin Trade Name Freq PRN Reason Stop Dose Admin Acetaminophen/Codeine Phosphate 1 tab 10/13/21 16:07 10/13/21 20:36 Acetaminophen/Codeine (*Crx) 300/30 Mg Tablet PO 1 tab Q6HR PRN Administration Pain Rated 4-6 Acetaminophen/Codeine Phosphate 2 tab 10/13/21 16:07 Acetaminophen/Codeine (*Crx) 300/30 Mg Tablet PO Q6H PRN Pain Rated 7-10 Albuterol 2 puff 10/12/21 19:57 10/13/21 08:46 Albuterol Sulfate (*Sp) Aerosol 1 Puff INHALATION 2 puff Q6HRT PRN Administration Shortness Of Breath Albuterol 1 puff 10/14/21 09:00 Albuterol Sulfate (*Sp) Aerosol 1 Puff INHALATION DAILY ERIC Enoxaparin Sodium 40 mg 10/14/21 09:00 Enoxaparin 40 Mg/0.4 Ml Syringe SUB-Q DAILY ERIC Sodium Chloride 1,000 mls @ 125 mls/hr 10/12/21 19:55 10/13/21 23:42 Normal Saline Iv IV CONT 125 mls/hr .Q8H ERIC Administration Piperacillin/Tazobactam/Dextrose 3.375 gm in 50 mls @ 100 mls/hr 10/13/21 03:00 10/14/21 03:45 Zosyn 3.375 Gm/D5w 50ml Pm IVPB Infused Q6H ERIC Infusion Acetaminophen 650 mg in 65 mls @ 260 mls/hr 10/13/21 18:00 10/14/21 06:25 Ofirmev 650 Mg Ivpb IVPB 10/14/21 17:59 160 mls/hr Q6HR ERIC Administration Miscellaneous Information 1 each 10/13/21 00:01 Pt's Home Med Potassium Gluconate Nonform; Can Pt Use From Home? XX 11/12/21 00:00 CLARIFY ERIC Montelukast Sodium 10 mg 10/14/21 09:00 Montelukast Sodium 10 Mg Tablet PO DAILY [facility] Morphine Sulfate 4 mg 10/12/21 23:44 10/14/21 06:24 Morphine
--- NOTE | 2021-10-14 07:53 | WPDANESPN ---
Anes - Prog Note Post-Op Date/Time: 10/14/21 07:53 Cardiovascular status: normal Respiratory status: normal Airway patency: baseline Mental status: baseline Post-Op hydration status: normal Vital Signs: Last Vital Signs Temp 37.0 C 10/14/21 06:07 Pulse 93 10/14/21 06:07 Resp 16 10/14/21 06:07 BP 122/75 10/14/21 06:07 Pulse Ox 98 10/14/21 06:07 O2 Del Method Room Air 10/13/21 20:08 O2 Flow Rate 8 10/13/21 14:20 Pain Score (VAS): 2 I/O: Intake & Output 10/13/21 10/13/21 10/14/21 15:59 23:59 07:59 Intake Total 2100 1115 1615 Output Total 700 1380 Balance 1400 1115 235 Laboratory Tests 10/14/21 05:13 10/14/21 05:13 10/13/21 10/13/21 10/14/21 14:18 14:18 05:13 WBC 10.4 H RBC 3.53 L Hgb 11.6 L Hct 35.9 L MCV 101.7 H MCH 32.9 MCHC 32.3 RDW 12.6 Plt Count 183 MPV 10.9 H Sodium Potassium Chloride Carbon Dioxide Anion Gap BUN Creatinine Estim Creat Clear Calc Estimated GFR Glucose Calcium Total Bilirubin AST ALT Alkaline Phosphatase Total Protein Albumin Acetaminophen 24 Cancelled 10/14/21 05:13 WBC RBC Hgb Hct MCV MCH MCHC RDW Plt Count MPV Sodium 136 L Potassium 3.5 Chloride 107 Carbon Dioxide 26 Anion Gap 3 L BUN 5 L Creatinine 0.60 L Estim Creat Clear Calc 91 Estimated GFR > 60 Glucose 131 H Calcium 7.4 L Total Bilirubin 0.4 AST 14 ALT 12 Alkaline Phosphatase 32 L Total Protein 5.0 L Albumin 2.7 L Acetaminophen Post-procedural complaints: none Patient Feedback: Patient satisfied with anesthetic care.
[2021-10-14] MEDS: FLUTICASONE/SALMETEROL 45-21 MCG INHALER 1 PUFF 2 PUFF INHALATION ×2 (08:04→20:50)
[2021-10-14] MEDS: ALBUTEROL SULFATE (*SP) AEROSOL 1 PUFF INHALATION (08:04)
[2021-10-14] MEDS: ENOXAPARIN 40 MG/0.4 ML SYRINGE SUB-Q (08:56)
[2021-10-14] MEDS: MONTELUKAST SODIUM 10 MG TABLET PO (08:56)
[2021-10-14] MEDS: ACETAMINOPHEN/CODEINE (*CRX) 300/30 MG TABLET 2 TAB PO (09:17)
[2021-10-14] MEDS: SODIUM CHLORIDE 0.9% IV 1,000 ML 125 ML IV CONT (09:17)
--- NOTE | 2021-10-14 11:24 | PM.PNGS ---
Progress Note: A&P Assessment and Plan (1) Acute appendicitis: Qualifiers: Acute appendicitis type: with localized peritonitis Appendicitis abscess presence: without abscess Appendicitis gangrene presence: without gangrene Appendicitis perforation presence: without perforation Qualified Code(s): K35.30 - Acute appendicitis with localized peritonitis, without perforation or gangrene Code(s): K35.80 - Unspecified acute appendicitis Status: Acute Assessment and Plan: S/p laparoscopic appendectomy on 10/13/2021 with findings of perforated appendicitis Continue IV Zosyn Continue to monitor NAYLA drain output Will keep her on clear liquids for now and consider advancing to full liquids as she is tolerating this diet Encouraged increasing her activity and try ambulating in the halls today, encouraged IS use Repeat labs tomorrow (2) Cyst of right ovary: Code(s): N83.201 - Unspecified ovarian cyst, right side Status: Acute Assessment and Plan: OBGYN with intraoperative consultation and findings some adhesions of the right ovary with a small hemorrhagic cyst at the base of the right ovary, and felt no intervention was necessary at that time. (3) Asthma: Code(s): J45.909 - Unspecified asthma, uncomplicated Status: Acute Assessment and Plan: Stable. No acute issues. Continue albuterol PRN. Plan I have discussed the patient's case and plan of care with Dr. Maza. Subjective Subjective Date/Time Seen: 10/14/21 11:24 Post Op day: 1 (Laparoscopic appendectomy) Patient reports: feels better, pain is less, tolerating liquids well, no flatus, no bowel movement and afebrile Interval history: Patient seen and examined. She reports her abdominal pain prior to surgery has improved and is currently controlled with oral pain medication. She denies flatus. She is tolerating clear liquids with no nausea or vomiting. She reports sitting at the side of the bed this morning, and she tried walking in her room last night. She has not ambulated yet today. She has been afebrile. NAYLA drain had 80 cc out overnight. The nurse recently removed her Zamora catheter prior to me coming into the room, therefore she has not yet voided. She had good urine output overnight. Review of Systems Review of Systems: All systems reviewed & are unremarkable except as noted in HPI and below Constitutional: Constitutional: Reports as per HPI, Reports no additional constitutional complaints, Denies chills and Denies fever(s) Cardiovascular: Cardiovascular: Reports no additional cardiovascular complaints, Denies chest pain and Denies leg edema Respiratory: Respiratory: Reports no additional respiratory complaints, Denies cough and Denies dyspnea Gastrointestinal: Gastrointestinal: Reports as per HPI and Reports no additional gastrointestinal complaints Neurologic: Reports system reviewed and no additional complaints, except as documented Exam Const: General: comfortable, no acute distress and awake Orientation/consciousness: patient oriented x3 Resp: Effort & Inspection: no respiratory distress Auscultation: clear to auscultation bilaterally Cardio: Rate: regular rate Rhythm: regular rhythm GI: Inspection: non-distended, incision (dry and glue intact, no signs of infection) and other (tatoo in RLQ) GI Palp: Yes Soft to palpation, Yes Tenderness to palpation present (GI) (diffusely tender, worse in RLQ) and Yes Guarding due to palpation present (GI) (across lower abdomen) Auscultation: Hypoactive bowel sounds present Other: NAYLA drain with serosanguineous output Neuro: General: moves all extremities and no focal motor deficits Extrem: General: normal to inspection, no calf tenderness bilaterally and no edema Psych: Insight: Good insight present (Psych) Judgement: Good judgement present (Psych) Objective Data Vital Signs Vital Signs: Vital Signs - 24 hr 10/13/21 14:06 10/13/21
[2021-10-14] MEDS: oxyCODONE HCL (*CRX) 2.5 MG TAB IR PO (15:46)
[2021-10-14] MEDS: oxyCODONE HCL (*CRX) 2.5 MG TAB IR 5 MG PO (15:46)
[2021-10-14] MEDS: HYDROmorphone HCL INJ (*CRX) 1 MG/ML SYR IV PUSH ×2 (20:20→23:15)
[2021-10-14] MEDS: ONDANSETRON INJ 4 MG/2 ML VIAL IV PUSH (20:20)
[2021-10-14] MEDS: SODIUM CHLORIDE 0.9% IV 1,000 ML 75 ML IV CONT (23:15)
[2021-10-15] VITALS (8 sets, daily range): BP systolic 123–140; BP diastolic 69–82; PULSE 89–99; RESP 12–20; TEMP 36.1–37.1; O2SAT 93–97
[2021-10-15] MEDS: HYDROmorphone HCL INJ (*CRX) 1 MG/ML SYR IV PUSH ×3 (05:46→15:21)
[2021-10-15] MEDS: ONDANSETRON INJ 4 MG/2 ML VIAL IV PUSH ×4 (05:49→20:20)
[2021-10-15 05:56] LABS: Anion Gap 4 mmol/L (8-16); Blood Urea Nitrogen 7 mg/dL (7-17); Carbon Dioxide 22 mmol/L (22-30); Chloride 108 mmol/L (98-107); Estimated CRCL calculation 107 ml/min; Estimated Glomerular Filt Rate > 60; Glucose 101 mg/dL (65-110); Potassium 3.6 mmol/L (3.4-5.0); Sodium 134 mmol/L (137-145)
[2021-10-15 07:38] LABS: Basophils Percent Auto 0.2 % (0.2-1.2); Eosinophils Absolute Auto 0.1 K/mm3 (0-0.3); Eosinophils Percent Auto 0.7 % (0-4.4); Hematocrit 33.3 % (37.0-47.0); Hemoglobin 11.2 g/dL (12.0-15.0); Immature Granulocyte Absolute 0.08 K/mm3 (0.00-0.031); Immature Granulocyte Percent A 0.7 % (0-0.5); Lymphocytes Absolute Auto 0.77 K/mm3 (0.9-3.2); Lymphocytes Percent Auto 7.1 % (18.3-44.2); Mean Corpuscular HGB Conc 33.6 g/dl (32-36); Mean Corpuscular Volume 98.2 fl (80-100); Mean Platelet Volume 10.6 fl (7.4-10.4); Monocytes Absolute Auto 0.5 K/mm3 (0.1-0.6); Neutrophils Absolute Auto 9.3 K/mm3 (1.3-6.7); Neutrophils Percent Auto 86.3 % (45.5-73.1); Platelet Count Result 230 k/mm3 (150-375); Red Blood Count 3.39 M/mm3 (4.2-5.4); Red Cell Distribution Width 12.7 % (11.5-14.5); White Blood Count 10.8 K/mm3 (4.5-10.0)
[2021-10-15] MEDS: FLUTICASONE/SALMETEROL 45-21 MCG INHALER 1 PUFF 2 PUFF INHALATION ×2 (07:57→20:39)
[2021-10-15] MEDS: ALBUTEROL SULFATE (*SP) AEROSOL 1 PUFF INHALATION (07:57)
[2021-10-15] MEDS: MONTELUKAST SODIUM 10 MG TABLET PO (09:32)
[2021-10-15] MEDS: SUMAtriptan SUCCINATE 25 MG TABLET 50 MG PO (09:33)
[2021-10-15] MEDS: ENOXAPARIN 40 MG/0.4 ML SYRINGE SUB-Q (09:34)
[2021-10-15] MEDS: BISACODYL 10 MG SUPPOSITORY RECTAL (11:36)
[2021-10-15] MEDS: CALCIUM CARBONATE (TUMS) 500 MG (200 MG ELEMENTAL) PO (14:08)
[2021-10-15] MEDS: SODIUM CHLORIDE 0.9% IV 1,000 ML 75 ML IV CONT (14:12)
--- NOTE | 2021-10-15 14:45 | PM.PNGS ---
Progress Note: A&P Assessment and Plan (1) Acute appendicitis: Qualifiers: Acute appendicitis type: with localized peritonitis Appendicitis abscess presence: without abscess Appendicitis gangrene presence: without gangrene Appendicitis perforation presence: without perforation Qualified Code(s): K35.30 - Acute appendicitis with localized peritonitis, without perforation or gangrene Code(s): K35.80 - Unspecified acute appendicitis Status: Acute Assessment and Plan: S/p laparoscopic appendectomy on 10/13/2021 with findings of perforated appendicitis Continue IV Zosyn Continue to monitor NAYLA drain output She is dealing with nausea and vomiting, likely has an ileus which she is at high risk for with the perforated appendix. Nausea has improved with the Zofrran. Will keep her on clear liquids for now. Discussed that if this worsens and she continues to have vomiting, then we may need to consider NG tube decompression and bowel rest. Encouraged ambulating in the halls and increasing activity daily, encouraged IS use Repeat labs tomorrow (2) Cyst of right ovary: Code(s): N83.201 - Unspecified ovarian cyst, right side Status: Acute Assessment and Plan: OBGYN with intraoperative consultation and findings some adhesions of the right ovary with a small hemorrhagic cyst at the base of the right ovary, and felt no intervention was necessary at that time. (3) Asthma: Code(s): J45.909 - Unspecified asthma, uncomplicated Status: Acute Assessment and Plan: Stable. No acute issues. Continue albuterol PRN. Plan I have discussed the patient's case and plan of care with Dr. Maza. Subjective Subjective Date/Time Seen: 10/15/21 14:45 Post Op day: 2 (laparoscopic appendectomy) Patient reports: no new complaints, still having pain, voiding w/o difficulty, no bowel movement, nausea, vomiting and afebrile Interval history: Patient seen and examined. She began feeling nauseated yesterday afternoon. She reports trying about 1/2 cup of coffee and some Gatorade for breakfast this morning and vomited after drinking. She is unsure if she has passed any gas, but thinks may once earlier today. No BM. She is still having lower abdominal pain, but feels this is being controlled with the IV Dilaudid. She has not had any oral analgesics today due to the nausea and vomiting. She has been up to walk in the room and has walked the halls once this morning. Review of Systems Review of Systems: All systems reviewed & are unremarkable except as noted in HPI and below Constitutional: Constitutional: Reports as per HPI, Reports no additional constitutional complaints, Denies chills and Denies fever(s) Cardiovascular: Cardiovascular: Reports no additional cardiovascular complaints, Denies chest pain and Denies leg edema Respiratory: Respiratory: Reports no additional respiratory complaints, Denies cough and Denies dyspnea Gastrointestinal: Gastrointestinal: Reports as per HPI and Reports no additional gastrointestinal complaints Exam Const: General: no acute distress and awake Orientation/consciousness: patient oriented x3 Resp: Effort & Inspection: no respiratory distress Auscultation: clear to auscultation bilaterally Cardio: Rate: regular rate Rhythm: regular rhythm GI: Inspection: non-distended, incision (dry and glue intact, no signs of infection) and other (tatoo in RLQ) GI Palp: Yes Soft to palpation, Yes Tenderness to palpation present (GI) (diffusely tender, worse in the RLQ) and Yes Guarding due to palpation present (GI) Auscultation: Hypoactive bowel sounds present (very few BS heard) Other: NAYLA drain with serosanguineous output Neuro: General: moves all extremities and no focal motor deficits Extrem: General: no calf tenderness bilaterally and no edema Psych: Insight: Good insight present (Psych) Judgement: Good judgement present (Psych) Objective Data Vital Sign
[2021-10-16] MEDS: ONDANSETRON INJ 4 MG/2 ML VIAL IV PUSH ×5 (00:33→16:32)
[2021-10-16] MEDS: CALCIUM CARBONATE (TUMS) 500 MG (200 MG ELEMENTAL) PO ×2 (00:58→12:14)
[2021-10-16] MEDS: SODIUM CHLORIDE 0.9% IV 1,000 ML 75 ML IV CONT ×2 (05:21→18:09)
[2021-10-16 05:42] LABS: Basophils Percent Auto 0.3 % (0.2-1.2); Eosinophils Absolute Auto 0.1 K/mm3 (0-0.3); Eosinophils Percent Auto 1.2 % (0-4.4); Hematocrit 37.5 % (37.0-47.0); Hemoglobin 12.2 g/dL (12.0-15.0); Immature Granulocyte Absolute 0.04 K/mm3 (0.00-0.031); Immature Granulocyte Percent A 0.5 % (0-0.5); Lymphocytes Absolute Auto 0.75 K/mm3 (0.9-3.2); Lymphocytes Percent Auto 8.5 % (18.3-44.2); Mean Corpuscular HGB Conc 32.5 g/dl (32-36); Mean Corpuscular Hemoglobin 32.7 pg (26-34); Mean Corpuscular Volume 100.5 fl (80-100); Mean Platelet Volume 10.6 fl (7.4-10.4); Monocytes Absolute Auto 0.5 K/mm3 (0.1-0.6); Monocytes Percent Auto 5.9 % (2.6-8.5); Neutrophils Absolute Auto 7.4 K/mm3 (1.3-6.7); Neutrophils Percent Auto 83.6 % (45.5-73.1); Platelet Count Result 280 k/mm3 (150-375); Red Blood Count 3.73 M/mm3 (4.2-5.4); Red Cell Distribution Width 12.6 % (11.5-14.5); White Blood Count 8.8 K/mm3 (4.5-10.0)
[2021-10-16 05:59] LABS: Anion Gap 5 mmol/L (8-16); Blood Urea Nitrogen 8 mg/dL (7-17); Calcium 7.8 mg/dL (8.4-10.2); Carbon Dioxide 28 mmol/L (22-30); Chloride 103 mmol/L (98-107); Estimated CRCL calculation 91 ml/min; Estimated Glomerular Filt Rate > 60; Glucose 107 mg/dL (65-110); Sodium 136 mmol/L (137-145)
[2021-10-16 06:00] VITALS: BP 139/80; PULSE 92; RESP 16; TEMP 36.9; O2SAT 94
[2021-10-16] MEDS: HYDROmorphone HCL INJ (*CRX) 1 MG/ML SYR IV PUSH (07:58)
[2021-10-16] MEDS: MONTELUKAST SODIUM 10 MG TABLET PO (08:30)
[2021-10-16] MEDS: ENOXAPARIN 40 MG/0.4 ML SYRINGE SUB-Q (08:30)
[2021-10-16] MEDS: BISACODYL 10 MG SUPPOSITORY RECTAL (08:40)
[2021-10-16] MEDS: FLUTICASONE/SALMETEROL 45-21 MCG INHALER 1 PUFF 2 PUFF INHALATION (09:31)
[2021-10-16] MEDS: ALBUTEROL SULFATE (*SP) AEROSOL 1 PUFF INHALATION (09:31)
--- NOTE | 2021-10-16 09:50 | PM.PNGS ---
Progress Note: A&P Assessment and Plan (1) Acute appendicitis: Qualifiers: Acute appendicitis type: with localized peritonitis Appendicitis abscess presence: without abscess Appendicitis gangrene presence: without gangrene Appendicitis perforation presence: without perforation Qualified Code(s): K35.30 - Acute appendicitis with localized peritonitis, without perforation or gangrene Code(s): K35.80 - Unspecified acute appendicitis Status: Acute Assessment and Plan: S/p laparoscopic appendectomy on 10/13/2021 with findings of perforated appendicitis Continue IV Zosyn Continue to monitor NAYLA drain output She is dealing with nausea and vomiting which seems to be slightly improved today but she still had 1 emesis at 5:00 a.m. today. This is ikely an ileus which she is at high risk for with the perforated appendix. (this is confirmed with the abdominal series done early this morning at the request of my partner when the nurse apparently called him regarding her new emesis. ) Will keep her on clear liquids for now but since she is feeling better will try to advance to full liquids later today. Discussed that if this worsens and she continues to have vomiting, then we may need to consider NG tube decompression and bowel rest. However, hope to avoid this. She states the pain is improving therefore we will again try to switch pain medication to a different combination. Encouraged ambulating in the halls and increasing activity daily, encouraged IS use. She states she did best better at this yesterday. Repeat labs tomorrow including a magnesium level. Potassium is 3.5 low normal today so will start potassium supplementation today b.i.d. (2) Cyst of right ovary: Code(s): N83.201 - Unspecified ovarian cyst, right side Status: Acute Assessment and Plan: OBGYN with intraoperative consultation and findings some adhesions of the right ovary with a small hemorrhagic cyst at the base of the right ovary, and felt no intervention was necessary at that time. (3) Asthma: Code(s): J45.909 - Unspecified asthma, uncomplicated Status: Acute Assessment and Plan: Stable. No acute issues. Continue albuterol PRN. Plan I have discussed the patient's case and plan of care with Monica her nurse and we have come up with a plan for pain medication and to try to get the patient's bowels working. It appears her ileus is resolving in that she has had several loose stools now. Subjective Subjective Date/Time Seen: 10/16/21 09:50 Post Op day: 3 (Still with postoperative ileus.) Patient reports: no new complaints, feels better, bowel movement, nausea and vomiting Interval history: Patient lying in bed when I entered the room. She states that she did take a Dulcolax suppository and had a bowel movement after it last evening. Since that time she has had 2 more bowel movements. Most recent one was about 0500 this morning but even after that she did vomit once. She has been sipping water and trying clear liquids but has not tried a lot. (IV fluids still going at 75 an hour). Review of Systems Constitutional: Constitutional: Reports as per HPI, Reports no additional constitutional complaints, Denies chills, Denies fatigue and Denies fever(s) Cardiovascular: Cardiovascular: Reports no additional cardiovascular complaints, Denies chest pain, Denies leg edema and Denies dyspnea Respiratory: Respiratory: Reports no additional respiratory complaints, Denies cough and Denies dyspnea Gastrointestinal: Gastrointestinal: Reports as per HPI and Reports nausea Genitourinary: Genitourinary: Reports no additional female genitourinary complaints and Denies dysuria Exam Const: General: no acute distress and awake Orientation/consciousness: patient oriented x3 HENMT: Head: normocephalic Mouth: Yes moist mucous membranes Resp: Effort & Inspection: no respiratory distress Auscultation: clear to auscu
[2021-10-16] MEDS: POTASSIUM CHLORIDE 20 MEQ TABLET.ER 40 MEQ PO ×2 (10:25→16:33)
[2021-10-16] MEDS: SUMAtriptan SUCCINATE 25 MG TABLET 50 MG PO (10:26)
[2021-10-16] MEDS: ACETAMINOPHEN/CODEINE (*CRX) 300/30 MG TABLET 2 TAB PO (10:27)
[2021-10-16] MEDS: IBUPROFEN 600 MG TABLET PO ×2 (11:40→18:09)
[2021-10-16 14:36] VITALS: BP 143/85; PULSE 90; RESP 18; TEMP 36.6; O2SAT 97
[2021-10-16] MEDS: ACETAMINOPHEN/CODEINE (*CRX) 300/30 MG TABLET 1 TAB PO ×2 (16:33→22:29)
[2021-10-16] MEDS: ONDANSETRON HCL ODT 4 MG TABLET PO (20:36)
[2021-10-16 22:00] VITALS: BP 135/77; PULSE 91; RESP 18; TEMP 36.6; O2SAT 96
[2021-10-17] MEDS: IBUPROFEN 600 MG TABLET PO ×3 (00:08→11:54)
[2021-10-17] MEDS: ONDANSETRON HCL ODT 4 MG TABLET PO (03:47)
[2021-10-17 06:00] VITALS: BP 135/80; PULSE 77; RESP 18; TEMP 36.4; O2SAT 97
[2021-10-17] MEDS: ACETAMINOPHEN/CODEINE (*CRX) 300/30 MG TABLET 1 TAB PO (06:00)
[2021-10-17] MEDS: SODIUM CHLORIDE 0.9% IV 1,000 ML 75 ML IV CONT (06:02)
[2021-10-17 06:16] LABS: Basophils Percent Auto 0.5 % (0.2-1.2); Eosinophils Absolute Auto 0.3 K/mm3 (0-0.3); Eosinophils Percent Auto 4.1 % (0-4.4); Hematocrit 32.3 % (37.0-47.0); Hemoglobin 10.3 g/dL (12.0-15.0); Immature Granulocyte Absolute 0.05 K/mm3 (0.00-0.031); Immature Granulocyte Percent A 0.8 % (0-0.5); Lymphocytes Absolute Auto 1.02 K/mm3 (0.9-3.2); Lymphocytes Percent Auto 16.6 % (18.3-44.2); Mean Corpuscular HGB Conc 31.9 g/dl (32-36); Mean Corpuscular Hemoglobin 32.9 pg (26-34); Mean Corpuscular Volume 103.2 fl (80-100); Mean Platelet Volume 10.5 fl (7.4-10.4); Monocytes Absolute Auto 0.7 K/mm3 (0.1-0.6); Monocytes Percent Auto 11.3 % (2.6-8.5); Neutrophils Absolute Auto 4.1 K/mm3 (1.3-6.7); Neutrophils Percent Auto 66.7 % (45.5-73.1); Platelet Count Result 268 k/mm3 (150-375); Red Blood Count 3.13 M/mm3 (4.2-5.4); White Blood Count 6.1 K/mm3 (4.5-10.0)
[2021-10-17 06:29] LABS: Alanine Aminotransferase 105 U/L (6-35); Albumin Level 2.4 g/dL (3.5-5.1); Alkaline Phosphatase 49 U/L (38-126); Anion Gap 3 mmol/L (8-16); Aspartate Amino Transferase 112 U/L (14-36); Bilirubin,Total 0.3 mg/dL (0.2-1.3); Blood Urea Nitrogen 9 mg/dL (7-17); Calcium 7.3 mg/dL (8.4-10.2); Carbon Dioxide 26 mmol/L (22-30); Chloride 108 mmol/L (98-107); Estimated CRCL calculation 107 ml/min; Estimated Glomerular Filt Rate > 60; Glucose 102 mg/dL (65-110); Magnesium 1.9 mg/dL (1.6-2.3); Potassium 3.3 mmol/L (3.4-5.0); Sodium 137 mmol/L (137-145)
[2021-10-17] MEDS: POTASSIUM CHLORIDE 20 MEQ TABLET.ER 40 MEQ PO (08:23)
[2021-10-17] MEDS: MONTELUKAST SODIUM 10 MG TABLET PO (08:23)
[2021-10-17] MEDS: ENOXAPARIN 40 MG/0.4 ML SYRINGE SUB-Q (08:24)
--- NOTE | 2021-10-17 11:48 | PM.DS ---
DS: Admitting Diagnosis Discharge Date 10/17/2021 Admitting Diagnosis acute appendicitis DS: Discharge Diagnosis Discharge Diagnosis (1) Acute appendicitis with perforation and localized peritonitis: Code(s): K35.32 - Acute appendicitis with perforation and localized peritonitis, without abscess Status: Acute Assessment and Plan: This was the main reason for the patient's admission. She had a somewhat javier postoperative course in that she had developed an ileus probably while she had appendicitis. She did not have her 1st bowel movement until postop day #4. Because there was localized peritonitis and apparent purulent exudate coming from a hole in the appendix I assume that she had perforated appendicitis. ( Pathology still pending). Therefore, we have continued IV antibiotics and she will go home on Cipro and Flagyl. (2) Asthma: Code(s): J45.909 - Unspecified asthma, uncomplicated Status: Acute Assessment and Plan: Patient did not have much trouble with this. We continued nebulizer treatment while she was in the hospital. This was as needed and she did not need much. She had no wheezing upon discharge. I did instruct her to use her incentive spirometer for a few more days after she went home. (3) Cyst of right ovary: Code(s): N83.201 - Unspecified ovarian cyst, right side Status: Acute DS: Summary Hospital Course Reason for hospitalization: acute appendicitis with perforation and localized peritonitis Hospital Course: The acute appendicitis was the main reason for the patient's admission. She had a somewhat javier postoperative course in that she had developed an ileus probably while she had appendicitis. She did not have her 1st bowel movement until postop day 4. Because there was localized peritonitis and apparent purulent exudate coming from a hole in the appendix I assume that she had perforated appendicitis. ( Pathology still pending). Therefore, we have continued IV antibiotics and she will go home on Cipro and Flagyl. Status at Discharge Cognitive/behavioral status at discharge: patient seemed to be back to baseline. Functional status at discharge: independent ambulation Overall status at discharge: patient is not back to baseline ( Still limited physically because of her incisions. Diet not quite back to normal yet either.) Time Spent with Patient Time attestation: Total time spent providing and/or coordinating discharge services: Time spent: Greater than 30 minutes Specific discharge activities: Counseling regarding gradual increase in her diet Explanation of how to take care of her wounds. Discussion regarding return to work. 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 Exam Const: General: cooperative, comfortable, alert and awake Orientation/consciousness: patient oriented x3 HENMT: Head: normal to inspection Mouth: Yes moist mucous membranes Eyes: Sclera: sclerae normal Pupils: Equal, round and reactive pupils present Neck: Neck: normal visual inspection and no JVD Chest: Chest palpation & inspection: normal inspection of the chest Resp: Effort & Inspection: normal respiratory effort Auscultation: clear to auscultation bilaterally Cardio: Jugular venous distension: no JVD Rate: regular rate GI: Inspection: incision ( clean and dry with surgical glue in place) Other: there is a left lower quadrant incision and NAYLA drain present. There is slightly cloudy serous drainage from this drain. Surrounding skin appears normal. Neuro: General: patient oriented x3 Cranial nerves: Yes Equal, round and reactive pupils present DS: Data Data Completed and Pending Pending studies at discharge: Pending at discharge 10/13/21 12:49 Surgical [PTH] Routine Labs on day of discharge: Labs from last 24 hours 10/17/21 10/17/21
--- NOTE | 2021-10-17 12:07 | PC.NURSE ---
reviewed in detail NAYLA drain instruction, dressing changed and reviewed procedure to change dressing if needed, sister is a nurse and can assist pt as needed, supplies sent
== END 2021-10-17 12:10 | disposition home or self-care (01) | DRG 340 ==
LOC: ANHED 18:29 → ANH2MED 20:27
PROVIDERS: Nurse Practitioner Family; Physician Assistant; Admitting Provider Surgery; Emergency Provider Emergency Medicine; PCP Family Medicine; Visit Provider Surgery
PROC: 0DTJ4ZZ Resection of Appendix, Percutaneous Endoscopic Approach (ICD-10-PCS; CPT 44970; principal; 2021-10-13 14:00)
DX: K35.32 Acute appendicitis with perforation, localized peritonitis, and gangrene, without abscess (principal); N83.201 Unspecified ovarian cyst, right side; J45.909 Unspecified asthma, uncomplicated; Z85.41 Personal history of malignant neoplasm of cervix uteri
CPT/HCPCS: 36415; 74019; 74176; 76830; 76856; 80048; 80053; 80307; 81001; 83690; 83735; 85025; 85027; 88304; 94640; 99285; A9270; J0131; J1100; J1170; J1650; J2250; J2270; J2405; J2543; J2704; J2710; J3010; J7030; J7120

== ENCOUNTER 2021-10-23 09:03 | Outpatient (CLI) | payer OTHER, SELFPAY ==
[2021-10-23 09:34] LABS: Basophils Percent Auto 0.5 % (0.2-1.2); Eosinophils Absolute Auto 0.1 K/mm3 (0-0.3); Eosinophils Percent Auto 1.6 % (0-4.4); Hematocrit 42.3 % (37.0-47.0); Hemoglobin 13.5 g/dL (12.0-15.0); Immature Granulocyte Percent A 1.1 % (0-0.5); Lymphocytes Absolute Auto 1.45 K/mm3 (0.9-3.2); Lymphocytes Percent Auto 16.6 % (18.3-44.2); Mean Corpuscular HGB Conc 31.9 g/dl (32-36); Mean Corpuscular Hemoglobin 32.6 pg (26-34); Mean Corpuscular Volume 102.2 fl (80-100); Mean Platelet Volume 9.7 fl (7.4-10.4); Monocytes Absolute Auto 0.8 K/mm3 (0.1-0.6); Monocytes Percent Auto 9.3 % (2.6-8.5); Neutrophils Absolute Auto 6.2 K/mm3 (1.3-6.7); Neutrophils Percent Auto 70.9 % (45.5-73.1); Platelet Count Result 657 k/mm3 (150-375); Red Blood Count 4.14 M/mm3 (4.2-5.4); Red Cell Distribution Width 12.6 % (11.5-14.5); White Blood Count 8.7 K/mm3 (4.5-10.0)
[2021-10-23 09:51] LABS: Alanine Aminotransferase 49 U/L (6-35); Albumin Level 3.7 g/dL (3.5-5.1); Alkaline Phosphatase 56 U/L (38-126); Anion Gap 3 mmol/L (8-16); Aspartate Amino Transferase 20 U/L (14-36); Bilirubin,Total 0.3 mg/dL (0.2-1.3); Blood Urea Nitrogen 12 mg/dL (7-17); CRP 2.5 mg/dL (<1.0); Calcium 8.6 mg/dL (8.4-10.2); Carbon Dioxide 27 mmol/L (22-30); Chloride 107 mmol/L (98-107); Estimated Glomerular Filt Rate > 60; Glucose 110 mg/dL (65-110); Potassium 4.6 mmol/L (3.4-5.0); Sodium 137 mmol/L (137-145)
== END 2021-10-23 09:04 | disposition home or self-care (01) ==
LOC: ANHLAB 09:05
PROVIDERS: PCP Family Medicine; Visit Provider Surgery
DX: K35.32 Acute appendicitis with perforation, localized peritonitis, and gangrene, without abscess (principal)
CPT/HCPCS: 36415; 80053; 85025; 86140

== ENCOUNTER 2021-10-24 08:59 | Emergency (ER) | payer OTHER, SELFPAY ==
--- NOTE | ~2021-10-24 | CT_ITS ---
EXAMINATION: CTA chest PE protocol DATE: 10/24/2021 11:35 INDICATION: Pleuritic chest pain. TECHNIQUE: Computed tomography angiography (CTA) of the chest was performed with 100 mL Omnipaque-350 intravenous contrast timed to evaluate the pulmonary arteries. Coronal maximum intensity projection 3D-reconstructions were created by the technologist. Automated exposure control and iterative reconst ruction technique were employed. The dose-length product was 193.22 mGy-cm. COMPARISON: CT abdomen and pelvis 10/12/2021 FINDINGS: The lungs demonstrate mild atelectasis. There is a small right pleural effusion. The heart size is normal. No pericardial effusion. There is no pulmonary embolus. There are bilateral breast im plants. There is mild thoracic spondylosis. IMPRESSION: 1. No pulmonary embolus. 2. Small right pleural effusion. Reviewed, dictated and finalized at location B.
--- NOTE | 2021-10-24 09:26 | ED.BACK ---
HPI - Back Pain/Injury General Chief Complaint: Back Pain/Injury Stated Complaint: Back Pain, Surgical Drain Removal Wed Time Seen by Provider: 10/24/21 09:11 Source: patient Mode of arrival: ambulatory Limitations: no limitations History of Present Illness HPI Narrative: This is a 46-year-old female that presents to the emergency department for right-sided back pain. Present over the last couple of days. The pain is worse with movement and deep breathing. Sometimes it takes her breath away. She has been taking ibuprofen with little relief. No recent injury or trauma. She did recently have a laparoscopic appendectomy here with Dr. Maza. She had a surgical drain placed which was removed 3 days ago at her follow-up appointment. Denies fever, vomiting, abdominal pain, or dysuria. Related Data Home Medications Medication Instructions Recorded Confirmed Adult One Daily Multivitamin 1 tab-cap BYMOUTH DAILY 08/25/19 10/24/21 albuterol sulfate 90 mcg/actuation 1 inh inhalation DAILY 08/25/19 10/24/21 aerosol inhaler (ProAir HFA) aspirin 81 mg tablet,delayed 81 mg PO DAILY 08/25/19 10/24/21 release (Adult Low Dose Aspirin) budesonide-formoterol HFA 80 1 puff inhalation DAILY 08/25/19 10/24/21 mcg-4.5 mcg/actuation aerosol inhaler (Symbicort) calcium carbonate 600 mg calcium 1 mg PO DAILY 08/25/19 10/24/21 (1,500 mg) tablet (Calcium) montelukast 10 mg tablet 10 mg PO DAILY 08/25/19 10/24/21 potassium gluconate 550 mg (90 mg) 550 mg PO DAILY 08/25/19 10/24/21 tablet atorvastatin 10 mg tablet 10 mg PO HS 10/13/21 10/24/21 sumatriptan 50 mg BYMOUTH DAILY PRN Migraine 10/15/21 10/24/21 Headache Allergies Allergy/AdvReac Type Severity Reaction Status Date / Time hydrocodone Allergy Severe Rash Verified 10/24/21 09:44 tramadol Allergy Severe RASH, Verified 10/24/21 09:44 NAUSEA AND VOMITING Review of Systems Review of Systems: CONSTITUTIONAL: Denies fever CARDIOVASCULAR: Reports pleuritic chest pain RESPIRATORY: Denies dyspnea. GASTROINTESTINAL: Denies abdominal pain, nausea, vomiting GENITOURINARY: Denies dysuria or hematuria. MUSCULOSKELETAL: Reports back pain, joint pain, and myalgia. 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 Maza 10/13/2021 S/P breast augmentation S/P endometrial ablation S/P laparoscopy S/P tubal ligation Status post laparoscopic assisted vaginal hysterectomy Secondary to adenocarcinoma in-situ 2019 Family History Family History (Reviewed 10/22/21 @ 09:20 by Terri uY, [facility]) Grandparent Family history of pancreatic cancer Family history of malignant neoplasm of uterus Other Family history of malignant neoplasm of breast Social History Social History (Reviewed 10/22/21 @ 09:20 by Terri Yu, [facility]) Smoking status: Never smoker Alcohol intake: current Drinks per week: 3 Substance use: never Substance use type: does not use Additional living arrangements comments: Recently moved to floor about 2 months ago. Here visiting her sister. Additional occupation/education comments: Works for [employer]. Gender identity (if verbalized by the patient): Female Spiritual care concerns: No Exam Narrative: GENERAL: Well-appearing, well-nourished, and in no acute distress. HEAD: Normocephalic, atraumatic. EYES: EOMI. CHEST: Clear to auscultation. No respiratory distress. No wheezes rales or rhonchi HEART: Regula
[2021-10-24 09:45] VITALS: BP 137/89; PULSE 99; RESP 23; TEMP 36.4; O2SAT 98
[2021-10-24] MEDS: diazePAM INJ (*CRX) 10 MG/2 ML SYRINGE 5 MG IV PUSH (09:50)
[2021-10-24 09:58] LABS: Basophils Absolute Auto 0.1 K/mm3 (0.0-0.1); Basophils Percent Auto 0.8 % (0.2-1.2); Eosinophils Absolute Auto 0.1 K/mm3 (0-0.3); Eosinophils Percent Auto 1.7 % (0-4.4); Hematocrit 42.2 % (37.0-47.0); Hemoglobin 13.3 g/dL (12.0-15.0); Immature Granulocyte Absolute 0.05 K/mm3 (0.00-0.031); Immature Granulocyte Percent A 0.6 % (0-0.5); Lymphocytes Absolute Auto 1.36 K/mm3 (0.9-3.2); Lymphocytes Percent Auto 17.4 % (18.3-44.2); Mean Corpuscular HGB Conc 31.5 g/dl (32-36); Mean Corpuscular Hemoglobin 32.2 pg (26-34); Mean Corpuscular Volume 102.2 fl (80-100); Mean Platelet Volume 9.8 fl (7.4-10.4); Monocytes Absolute Auto 0.8 K/mm3 (0.1-0.6); Monocytes Percent Auto 10.3 % (2.6-8.5); Neutrophils Absolute Auto 5.4 K/mm3 (1.3-6.7); Neutrophils Percent Auto 69.2 % (45.5-73.1); Platelet Count Result 684 k/mm3 (150-375); Red Blood Count 4.13 M/mm3 (4.2-5.4); Red Cell Distribution Width 12.9 % (11.5-14.5); White Blood Count 7.8 K/mm3 (4.5-10.0)
[2021-10-24 10:11] LABS: INR 1.1; Partial Thromboplastin Time 23.2 SECONDS (22.3-36.8); Prothrombin Time 13.8 Seconds (11.1-14.7)
[2021-10-24 10:14] LABS: D Dimer 2.76 ug/mL (<0.48)
[2021-10-24 10:55] LABS: Add Urine Microscopic? YES; Appearance Urine Clear (Clear); Bilirubin Urine Negative (Negative); Blood Urine Negative (Negative); Color Urine Yellow (Yellow); Glucose Urine UA Negative (Negative); Ketones Urine Trace mg/dL (Negative); Leukocyte Esterase Ur Negative LEU/UL (Negative); Nitrate Urine Negative (Negative); Protein Urine Negative (Negative); Specific Grav Ur >= 1.030 (1.001-1.035); Urobilinogen Urine 0.2 mg/dL (<2.0); pH Urine 5.5 (5.0-9.0)
[2021-10-24 11:06] LABS: Alanine Aminotransferase 40 U/L (6-35); Albumin Level 3.8 g/dL (3.5-5.1); Alkaline Phosphatase 65 U/L (38-126); Anion Gap 2 mmol/L (8-16); Aspartate Amino Transferase 22 U/L (14-36); Bilirubin,Total 0.4 mg/dL (0.2-1.3); Blood Urea Nitrogen 14 mg/dL (7-17); Calcium 8.6 mg/dL (8.4-10.2); Carbon Dioxide 30 mmol/L (22-30); Chloride 106 mmol/L (98-107); Estimated CRCL calculation 85 ml/min; Estimated Glomerular Filt Rate > 60; Glucose 109 mg/dL (65-110); Lipase 257 U/L (23-300); Potassium 4.6 mmol/L (3.4-5.0); Sodium 138 mmol/L (137-145)
[2021-10-24 11:11] LABS: Bacteria Urine Trace /hpf; Mucus Urine Heavy /lpf; Squamous Epithelial Cell Urine Occasional /hpf (Few)
--- NOTE | 2021-10-24 11:17 | PC.NURSE ---
Care assumed of pt at this time.
[2021-10-24 11:29] LABS: Pregnancy On Board Control Positive; Urine Pregnancy Test Negative
[2021-10-24 12:14] VITALS: BP 132/94; PULSE 97; RESP 18; O2SAT 98
[2021-10-24 12:56] VITALS: BP 139/96; PULSE 91; RESP 18; O2SAT 99
[2021-10-24 13:40] VITALS: BP 142/78; PULSE 77; RESP 18; O2SAT 98
== END 2021-10-24 13:41 | disposition home or self-care (01) ==
PROVIDERS: Physician Assistant; Emergency Provider Emergency Medicine; PCP Family Medicine
DX: M54.9 Dorsalgia, unspecified (principal); M62.830 Muscle spasm of back; J98.11 Atelectasis; J90 Pleural effusion, not elsewhere classified; J45.909 Unspecified asthma, uncomplicated; I10 Essential (primary) hypertension; Z85.41 Personal history of malignant neoplasm of cervix uteri; Z90.710 Acquired absence of both cervix and uterus; Z79.82 Long term (current) use of aspirin
CPT/HCPCS: 36415; 71275; 80053; 81001; 81025; 83690; 85025; 85380; 85610; 85730; 96374; 96375; 99284; J0131; J3360; Q9967

== ENCOUNTER → 2023-04-26 11:15 | Outpatient (CLI) | payer OTHER, SELFPAY ==
--- NOTE | ~2023-04-26 | MM_ITS ---
EXAMINATION: MM scrn crow implant BI w juany HISTORY: Screening mammogram TECHNIQUE: Craniocaudal and mediolateral oblique 3-D tomosynthesis images with implant displacement a nd synthetic 2-D images were generated. Craniocaudal and mediolateral oblique views of the breasts wi thout implant displacement were obtained using full field digital mammography. CAD analysis was submi tted and interpreted. COMPARISON: 04/08/2020, 09/09/2018 bilateral implant screening mammogram examinations BREAST PARENCHYMAL COMPOSITION: There are scattered areas of fibroglandular density. FINDINGS: Status post bilateral augmentation mammoplasty. Stable approximately 3 x 5 mm circumscribed opacity is noted in the anterior mid outer left breast, unchanged since 09/09/2018. There is no eviden ce of suspicious mass, calcification, or architectural distortion to suggest malignancy in either jessica ast. There has been no suspicious interval change. IMPRESSION: 1. No mammographic evidence of malignancy. 2. Recommend routine screening mammography in one year. BI-RADS Category 2: Benign finding(s). Reviewed, dictated and finalized at location A. CUT EXAMINER
== END ==
PROVIDERS: PCP Obstetrics & Gynecology Gynecology; Visit Provider Obstetrics & Gynecology Gynecology
DX: Z12.31 Encounter for screening mammogram for malignant neoplasm of breast (principal)
CPT/HCPCS: 77063; 77067

== ENCOUNTER 2023-10-14 14:29 | Outpatient (CLI) | payer OTHER, SELFPAY ==
--- NOTE | ~2023-10-14 | US_ITS ---
Pelvic ultrasound. Clinical History: Pelvic pain Technique: Realtime transabdominal and transvaginal scanning of the pelvis was performed. Color flow Doppler and Doppler spectral analysis were performed. Findings: The uterus is absent, compatible prior hysterectomy. The right ovary measures 2.0 x 1.9 x 2.4 cm. No significant right ovarian or adnexal mass is seen. The left ovary is not visualized. No significant left ovarian or adnexal mass is seen. There is no evidence of free fluid in the cul de sac. Impression: Right ovary unremarkable. Uterus absent, compatible prior hysterectomy. Left ovary not visualized. Reviewed, dictated and finalized at location . Impression: Right ovary unremarkable. Uterus absent, compatible prior hysterectomy. Left ovary not visualized.
== END 2023-10-14 14:30 ==
PROVIDERS: PCP Obstetrics & Gynecology Gynecology; Visit Provider Obstetrics & Gynecology Gynecology
DX: R19.09 Other intra-abdominal and pelvic swelling, mass and lump (principal); Z90.710 Acquired absence of both cervix and uterus
CPT/HCPCS: 76830

== ENCOUNTER 2024-10-20 13:16 | Outpatient (CLI) | payer OTHER, SELFPAY ==
--- OUTSIDE RECORDS SUMMARY | 2024-10-20 13:19 | XMS_ITS | Patient Health Record ---
Author Organization [facility] Address [address] [place] [address] Care Team Providers Care National Account Representative Name Role Phone Jose Jovita Primary Care Provider Allergies No Known Allergies Results Component Value Reference Range Notes CBC (INCLUDES DIFF/PLT) ([facility]) Reviewed date:02/08/2024 05:43:58 PM Interpretation:~Normal Performing Lab:TP, [facility], [address], [place], [address] Moses Mclain MD Notes/Report: NON-FASTING NON-FASTING NON-FASTING WHITE BLOOD CELL COUNT 4.3 3.8-10.8 Thousand/ uL RED BLOOD CELL COUNT 4.42 3.80-5.10 Million/uL HEMOGLOBIN 14.3 11.7-15.5 g/dL HEMATOCRIT 44.7 35.0-45.0 % MCV 101.1 80.0-100.0 fL MCH 32.4 27.0-33.0 pg MCHC 32.0 32.0-36.0 g/dL For adults, a slight decrease in the calculated MCHC value (in the range of 30 to 32 g/dL) is most likely not clinically significant; however, it should be interpreted with caution in correlation with other red cell parameters and the patient's clinical condition. RDW 11.9 11.0-15.0 % PLATELET COUNT 242 140-400 Thousand/uL MPV 11.0 7.5-12.5 fL ABSOLUTE NEUTROPHILS [phone] cells/uL ABSOLUTE LYMPHOCYTES 7635 141-5806 cells/uL ABSOLUTE MONOCYTES 366 200-950 cells/uL ABSOLUTE EOSINOPHILS 219 15-500 cells/uL ABSOLUTE BASOPHILS 30 0-200 cells/uL NEUTROPHILS 53.9 LYMPHOCYTES 31.8 MONOCYTES 8.5 EOSINOPHILS 5.1 BASOPHILS 0.7 PROTHROMBIN W/INR + PARTIAL THROMBOPLASTIN TIMES (light blue top) Reviewed date:02/08/2024 05:44:11 PM Interpretation:Normal Performing Lab:TP, [facility], [address], [place], [phone] Moses Mclain MD Notes/Report: NON-FASTING NON-FASTING NON-FASTING PARTIAL THROMBOPLASTIN TIME, ACTIVATED 25 23-32 sec This test has not been validated for monitoring unfractionated heparin therapy. For testing that is validated for this type of therapy, please refer to the Heparin Anti-Xa assay (test code 08791). For additional information, please refer to http://education.Selphee/faq/HWG760 (This link is being provided for informational/educationa l purposes only.) INR 1.0 Reference Range 0.9-1.1 Moderate-intensity Warfarin Therapy 2.0-3.0 Higher-intensity Warfarin Therapy 3.0-4.0 PT 10.2 9.0-11.5 sec CMP ([facility]) (COMPREHENSIVE M ETABOLIC PANEL) Reviewed date:02/08/2024 05:44:31 PM Interpretation:Normal Performing Lab:TP, [facility], [address], [place], [address] Moses Mclain MD Notes/Report: NON-FASTING NON-FASTING NON-FASTING GLUCOSE 88 65-99 mg/dL Fasting reference interval UREA NITROGEN (BUN) 12 7-25 mg/dL CREATININE 0.81 0.50-0.99 mg/dL EGFR 89 > OR = 60 mL/min/1.73m2 BUN/CREATININE RATIO SEE NOTE: 6-22 (calc) Not Reported: BUN and Creatinine are within reference range. SODIUM 139 135-146 mmol/L POTASSIUM 4.1 3.5-5.3 mmol/L CHLORIDE 103 98-110 mmol/L CARBON DIOXIDE 27 20-32 mmol/L CALCIUM 8.8 8.6-10.2 mg/dL PROTEIN, TOTAL 6.8 6.1-8.1 g/dL ALBUMIN 4.1 3.6-5.1 g/dL GLOBULIN 2.7 1.9-3.7 g/dL (calc) ALBUMIN/GLOBULIN RATIO 1.5 1.0-2.5 (calc) BILIRUBIN, TOTAL 0.3 0.2-1.2 mg/dL ALKALINE PHOSPHATASE 38 31-125 U/L AST 20 10-35 U/L ALT 20 6-29 U/L ECG (Electrocardiogram) Reviewed date:02/07/2024 11:22:52 AM Interpretation:NSR Performing Lab: Notes/Report: NSR Chest X-ray PA and lateral Reviewed date:02/07/2024 12:15:11 PM Interpretation:Negative Performing Lab: Notes/Report: Negative Reason For Referral No Information Medications Medication SIG (Take, Route, Frequency, Duration) Notes Start Date End Date Status Propranolol HCl 10 MG 1 tablet Orally On ce a day for 90 days Active Atorvastatin Calcium 40 MG 1 tablet Oral ly Once a day for 90 days Active Losartan Potassium 25 MG 1 tablet Orally Once a day for 90 days Active Albuterol Sulfate HFA 108 (90 Base) MCG/ACT 1 puff as needed Inhalation every 4 hrs as needed for wheezing/sob for 90 days Active busPIRone HCl 10 MG 1 tablet Orally Twic e a day for 90 days Active buPROPion HCl ER (XL) 300 MG 1 tablet in the morning Orally Once a day for 90 days Active ZyrTEC 10 MG 1 tablet Orally Once a day Active Montelukast Sodium 10 MG 1 tablet Orally Once a day for 90 days Active Immunizations Vaccine Route Administration Date Status Comme nts Adacel (Tdap) Unknown 07/08/2017 Administered Social History Tobacco Use: Social History Observation Description Date Details (start date - stop date) Former Smoker NA - NA Tobacco Use/Smoking SF Question Answer Notes Are you a former smoker How long has it been since you last smoked? > 10 years Alcohol Screen Question Answer Notes Did you have a drink contain ing alcohol in the past year? Yes How often did you have a dri nk containing alcohol in the past year? 2 to 4 times a month (2 points) How many drinks did you have on a typical day when you were drinking in the past year? 3 or 4 drinks (1 point) How often did you have 6 or more drinks on one occasion in the past year? Never (0 point) Points 3 Interpretation Positive Sexual History SF Question Answer Notes Had sex in the past 12 months (vaginal, oral, or anal)? Yes with Men only Use protection? No Have you ever had a Sexually transmitted disease ? No Problems Problem Type SNOMED Code ICD Code Onset Dates Problem Status W/U Status Risk Notes Problem Allergic rhinitis (24934679) Allergic rhinitis (J30.9) Active confirmed Problem Gastroesophageal reflux disease (601823099) GERD (gastroesophageal reflux disease) (K21.9) Active confirmed Problem Mixed anxiety and depressive disorder (208674539) Anxiety and depression (F41.9) Active confirmed Problem Mild intermittent asthma (360269905) Mild intermittent asthma in adult without complication (J45.20) Active confirmed Problem Microalbuminuria (820866416) Microalbuminuria (R80.9) Active confirmed Problem Essential hypertension (21631370) Essential hypertension (I10) Active confirmed Problem History of malignant neoplasm of cervix (542327497) History of cervical cancer (Z85.41) Active confirmed Problem Right upper quadrant pain (469879140) Abdominal discomfort in right upper quadrant (R10.11) Active confirmed Problem Hyperlipidaemia (29141216) Hyperlipidemia LDL goal <100 (E78.5) Active confirmed 07/03 LDL 56 Problem History of hysterectomy (027900334) History of partial hysterectomy (Z90.710) Active confirmed Problem Intermittent palpitations (488787261) Intermittent palpitations (R00.2) Active confirmed Vital Signs Temperature 97.4 degrees Fahrenheit 02/07/2024 Blood pressure diastolic 79 mm Hg 02/07/2024 Oximetry 98 % 02/07/2024 Height 62 in 02/07/2024 Blood pressure systolic 111 mm Hg 02/07/2024 Weight 148 lbs 02/07/2024 BMI 27.07 kg/m2 02/07/2024 Encounters Encounter Location Date Provider Diagnosis [facility] [address] [place] [address] 11/15/2023 Jovita Nora Overweight (BMI 25.0-29.9) E66.3 [facility] [address] [place] [address] 02/07/2024 Jovita Nora Preop examination Z01.818 ; Essential hypertension I10 ; Hyperlipidemia LDL goal <100 E78.5 ; Anxiety and depression F41.9 ; Mild intermittent asthma in adult without complication J45.20 ; GERD (gastroesophageal reflux disease) K21.9 ; Intermittent palpitations R00.2 and Allergic rhinitis J30.9 [facility] [address] [place] [address] 01/03/2024 Jovita Nora [facility] [address] [place] [address] 02/07/2024 Jovita Nora [facility] [address] [place] [address] 10/22/2023 Jovita Nora Anxiety and depressi on F41.9 [facility] [address] [place] [address] 10/22/2023 Jovita Nora [facility] [address] [place] [address] 10/23/2023 Jovita Nora [facility] [address] [place] [address] 11/01/2023 Jovita Nora [facility] [address] [place] [address] 12/07/2023 Jovita Nora Overweight (BMI 25.0-29.9) E66.3 and Anxiety and depression F41.9 [facility] [address] [place] [facility] [place] [address] 01/17/2024 Jovita Nora Assessments Encounter Date Diagnosis (ICD Code) Assessment Notes Treatment Notes Treatment Clinical Notes Section Notes 10/22/2023 Anxiety and depression (ICD-10 - F41.9) 11/15/2023 Overweight (BMI 25.0-29.9) (ICD-10 - E66.3) GLP1 Rx such as Trulicity, Ozempic, Mounjaro, WYGOVY weekly injectable or Rybelsus (oral): May cause GI (gastrointestinal) upset such as nausea, abdominal pain , diarrhea or indigestion, especially temporarily when starting medication and with dose increases. If symptoms are severe or persistent, STOP the medication and contact the office. Gastrointestinal symptoms could develop at any time and even after assisted use of the medication. If any concerns stop the medication and contact the office. Symptoms may also occur if stopping and restarting Rx. Notify the office if you have not been taking rx regularly and need to resume as this will require LOWER doses. These medications are associated with medullary thyroid cancer IN [place] so are not recommended if there is a history of medullary thyroid cancer. Caution for gallstones especially with rapid weight loss. or with a history of cholecystectomy. (bile duct stones) Caution with oral contraception use as may decrease efficacy. Alternative control recommended. There are health benefits for chronic kidney disease, diabetes progression and cardiovascular protection with these medications. IF you are on a higher dose of these medications and run out for a few weeks, you need to contact your clinician as you may need to resume medication at a lower dose. 12/07/2023 Overweight (BMI 25.0-29.9) (ICD-10 - E66.3) 02/07/2024 Essential hypertension (ICD-10 - I10) Denies chest pain or shortness of breath, Watch for medication side effects and follow up immediately, Continue daily blood pressure monitoring and maintain BP <130/80, Follow up if blood pressure is elevated, Bring blood pressure log and blood pressure cuff to next office visit. Continue a healthy low salt, low fat diet, maintain healthy weight and exercise as tolerated most days of the week. Risks of stroke or heart failure with uncontrolled high blood pressure 02/07/2024 Preop examination (ICD-10 - Z01.818) Patient is having revision, breast implant exchange and silicone gel implants cosmetic surgery on 03/02/[address] Anders at [facility]. Patient states she is stable, with no new complaints or issues at this time. EKG, CXR and labs completed. No c/o shortness of breath, chest pain or other symptoms at this time. Patient is medically optimized and cleared for surgery from primary care standpoint with low risk. Risks and benefits discussed, and patient agrees to move forward with procedure. All questions answered. Stop aspirin and nonsteroidal anti-inflammatory drugs including ibuprofen, Motrin, Aleve and Naproxen for one week prior to surgery or per surgeon's instruction. Also stop omega 3 vitamins, fish oil and vitamin E if taking these supplements. 02/07/2024 Hyperlipidemia LDL goal <100 (ICD-10 - E78.5) 07/03 LDL 56 Low cholesterol, low fat, moderate fiber diet, maintain healthy weight and exercise as tolerated. Increase healthy fats such as avocado, olive oil, salmon, Decrease carbohydrate and sugar intake to reduce risks of pancreatitis, May supplement with natural cholesterol-lowerin g agents such as omega 3 fatty acids or citrus bergamot 12/07/2023 Anxiety and depression (ICD-10 - F41.9) 02/07/2024 Anxiety and depression (ICD-10 - F41.9) 02/07/2024 Mild intermittent asthma in adult without complication (ICD-10 - J45.20) 02/07/2024 GERD (gastroesophageal reflux disease) (ICD-10 - K21.9) Take medications as prescribed while symptoms persist, Avoid laying down soon after eating, up to two hours, and do not eat less than two hours before bed. Avoid alcohol, acidic or citrus foods, carbonated beverages, mint, chocolate, spicy and fatty foods, tomato sauce and certain medications such as anti-inflammatory medications such as Ibuprofen, Advil, Celebrex, Naproxen or Aleve to decrease incidents of reflux. Avoid stooping, bending after meals. Avoid tight fitting garments. Patient should take Calcium, Vitamin D, Vitamin B12 and Magnesium if on a medication such as Protonix, Nexium or Omeprazole 02/07/2024 Intermittent palpitations (ICD-10 - R00.2) 02/07/2024 Allergic rhinitis (ICD-10 - J30.9) Allergen avoidance reinforced, If caused by indoor allergens, maintain an allergen-free environment (cover pillows and mattresses with plastic covers, remove carpets, drapes), try air purifiers Plan Of Treatment No Information Insurance Providers Payer Name Payer Address Payer Phone Subscriber Number Group Number Insured Name Patient Relationship to Insured Coverage Start Date Coverage End Date [facility] [address] [place], [place] [id number] Avelina FOSTER Self - patient is the insured Medical (General) History Medical History History ICD Code Hypertension Hyperlipidemia Anxiety Depression Cervical Cancer Asthma Surgical History Surgery Date(Month/Year) partial hysterectomy appendix removal Hospitalization History Reason Date(Month/Year) surgeries
--- OUTSIDE RECORDS SUMMARY | 2024-10-20 13:19 | XMS_ITS | Patient Health Record ---
Author Organization [facility] Address [address] [place] [address] Care Team Providers Care Artist Relationship Manager Name Role Phone Jovita Garcia Primary Care Provider Allergies No Known Allergies Results Component Value Reference Range Notes Chest X-ray PA and lateral Reviewed date:02/07/2024 12:15:11 PM Interpretation:Negative Performing Lab: Notes/Report: Negative ECG (Electrocardiogram) Reviewed date:02/07/2024 11:22:52 AM Interpretation:NSR Performing Lab: Notes/Report: NSR CMP ([facility]) (COMPREHENSIVE M ETABOLIC PANEL) Reviewed date:02/08/2024 05:44:31 PM Interpretation:Normal Performing Lab:TP, [facility] [address], [address] Moses Mclain MD Notes/Report: Not Reported: BUN and Creatinine are within NON-FASTING Fasting reference interval reference range. NON-FASTING NON-FASTING GLUCOSE 88 65-99 mg/dL UREA NITROGEN (BUN) 12 7-25 mg/dL CREATININE 0.81 0.50-0.99 mg/dL EGFR 89 > OR = 60 mL/min/1.73m2 BUN/CREATININE RATIO SEE NOTE: 6-22 (calc) SODIUM 139 135-146 mmol/L POTASSIUM 4.1 3.5-5.3 mmol/L CHLORIDE 103 98-110 mmol/L CARBON DIOXIDE 27 20-32 mmol/L CALCIUM 8.8 8.6-10.2 mg/dL PROTEIN, TOTAL 6.8 6.1-8.1 g/dL ALBUMIN 4.1 3.6-5.1 g/dL GLOBULIN 2.7 1.9-3.7 g/dL (calc) ALBUMIN/GLOBULIN RATIO 1.5 1.0-2.5 (calc) BILIRUBIN, TOTAL 0.3 0.2-1.2 mg/dL ALKALINE PHOSPHATASE 38 31-125 U/L AST 20 10-35 U/L ALT 20 6-29 U/L PROTHROMBIN W/INR + PARTIAL THROMBOPLASTIN TIMES (light blue top) Reviewed date:02/08/2024 05:44:11 PM Interpretation:Normal Performing Lab:, [facility] [address] [address] [place], [place], [address] Moses Mclain MD Notes/Report: This test has not been validated for monitoring unfractionated heparin therapy. For testing that is validated for this type of therapy, please refer to the Heparin Anti-Xa assay (test code 56259). For additional information, please refer to http://education.[employer]/faq/OTD087 (This link is being provided for informational/educational purposes only.) Higher-intensity Warfarin Therapy 3.0-4.0 NON-FASTING NON-FASTING Moderate-intensity Warfarin Therapy 2.0-3.0 NON-FASTING Reference Range 0.9-1.1 PARTIAL THROMBOPLASTIN TIME, ACTIVATED 25 23 -32 sec INR 1.0 PT 10.2 9.0-11.5 sec CBC (INCLUDES DIFF/PLT) ([facility]) Reviewed date:02/08/2024 05:43:58 PM Interpretation:~Normal Performing Lab:, [facility] [address] [place], [place], [address] Moses Mclain MD Notes/Report: For adults, a slight decrease in the calculated MCHC value (in the range of 30 to 32 g/dL) is most likely not clinically significant; however, it should be interpreted with caution in correlation with other red cell parameters and the patient's clinical condition. NON-FASTING NON-FASTING NON-FASTING WHITE BLOOD CELL COUNT 4.3 3.8-10.8 Thousand/ uL RED BLOOD CELL COUNT 4.42 3.80-5.10 Million/uL HEMOGLOBIN 14.3 11.7-15.5 g/dL HEMATOCRIT 44.7 35.0-45.0 % MCV 101.1 80.0-100.0 fL MCH 32.4 27.0-33.0 pg MCHC 32.0 32.0-36.0 g/dL RDW 11.9 11.0-15.0 % PLATELET COUNT 242 140-400 Thousand/uL MPV 11.0 7.5-12.5 fL ABSOLUTE NEUTROPHILS 2318 5127-6528 cells/uL ABSOLUTE LYMPHOCYTES 9839 562-9218 cells/uL ABSOLUTE MONOCYTES 366 200-950 cells/uL ABSOLUTE EOSINOPHILS 219 15-500 cells/uL ABSOLUTE BASOPHILS 30 0-200 cells/uL NEUTROPHILS 53.9 LYMPHOCYTES 31.8 MONOCYTES 8.5 EOSINOPHILS 5.1 BASOPHILS 0.7 Reason For Referral No Information Medications Medication SIG (Take, Route, Frequency, Duration) Notes Start Date End Date Status busPIRone HCl 10 MG 1 tablet Orally Twic e a day for 90 days Active Montelukast Sodium 10 MG 1 tablet Orally Once a day for 90 days Active ZyrTEC 10 MG 1 tablet Orally Once a day Active buPROPion HCl ER (XL) 300 MG 1 tablet in the morning Orally Once a day for 90 days Active Losartan Potassium 25 MG 1 tablet Orally Once a day for 90 days Active Atorvastatin Calcium 40 MG 1 tablet Oral ly Once a day for 90 days Active Albuterol Sulfate HFA 108 (90 Base) MCG/ACT 1 puff as needed Inhalation every 4 hrs as needed for wheezing/sob for 90 days Active Propranolol HCl 10 MG 1 tablet Orally On ce a day for 90 days Active Immunizations Vaccine Route Administration Date Status Comme nts Td (Tetanus and Diphtheria) 7 yrs or older Unknown 07/08/2017 Administered Problems Problem Type SNOMED Code ICD Code Onset Dates Problem Status W/U Status Risk Notes Problem Gastroesophageal reflux disease (966313950) GERD (gastroesophageal reflux disease) (K21.9) Active confirmed Problem Mixed anxiety and depressive disorder (945991183) Anxiety and depression (F41.9) Active confirmed Problem Intermittent palpitations (517450162) Intermittent palpitations (R00.2) Active confirmed Problem Hyperlipidaemia (12891412) Hyperlipidemia LDL goal <100 (E78.5) Active confirmed 2/24 LDL 56 Problem History of hysterectomy (186717061) History of partial hysterectomy (Z90.710) Active confirmed Problem Mild intermittent asthma (352456659) Mild intermittent asthma in adult without complication (J45.20) Active confirmed Problem Right upper quadrant pain (857292093) Abdominal discomfort in right upper quadrant (R10.11) Active confirmed Problem Allergic rhinitis (22119625) Allergic rhinitis (J30.9) Active confirmed Problem Microalbuminuria (115973173) Microalbuminuria (R80.9) Active confirmed Problem Essential hypertension (31934534) Essential hypertension (I10) Active confirmed Problem History of malignant neoplasm of cervix (562978544) History of cervical cancer (Z85.41) Active confirmed Vital Signs Temperature 97.4 degrees Fahrenheit 02/07/2024 Blood pressure diastolic 79 mm Hg 02/07/2024 Oximetry 98 % 02/07/2024 Height 62 inches 02/07/2024 Blood pressure systolic 111 mm Hg 02/07/2024 Weight 148 lbs 02/07/2024 BMI 27.07 kg/m2 02/07/2024 Encounters Encounter Location Date Provider Diagnosis [facility] [address] [place] [address] 01/03/2024 Jovita Red Bud [facility] [address] [place] [address] 02/07/2024 Jovita Red Bud [facility] [address] [place] [address] 10/22/2023 Jovita Red Bud Anxiety and depressi on F41.9 [facility] [address] [place] [address] 10/22/2023 Jovita Red Bud [facility] [address] [place] [address] 10/23/2023 Jovita Red Bud [facility] [address] [place] [address] 11/01/2023 Jovita Red Bud [facility] [address] [place] [address] 12/07/2023 Jovita Red Bud Overweight (BMI 25.0-29.9) E66.3 and Anxiety and depression F41.9 [facility] [address] [place] [address] 01/17/2024 Jovita Red Bud [facility] [address] [place] [address] 02/07/2024 Jovita Red Bud Preop examination Z01.818 ; Essential hypertension I10 ; Hyperlipidemia LDL goal <100 E78.5 ; Anxiety and depression F41.9 ; Mild intermittent asthma in adult without complication J45.20 ; GERD (gastroesophageal reflux disease) K21.9 ; Intermittent palpitations R00.2 and Allergic rhinitis J30.9 [facility] [address] [place] [address] 11/15/2023 Jovita Red Bud Overweight (BMI 25.0-29.9) E66.3 Assessments Encounter Date Diagnosis (ICD Code) Assessment [...] develop at any time and even after superintendent [employer] use of the medication. If any concerns [...] Overweight (BMI 25.0-29.9) (ICD-10 - E66.3) 02/07/2024 Preop examination (ICD-10 - Z01.818) Patient is having revision, breast implant exchange and silicone gel implants cosmetic surgery on 03/02/[address] Anders at [facility]. Patient states she is [...] vitamin E if taking these supplements. 02/07/2024 Essential hypertension (ICD-10 - I10) Denies [...] failure with uncontrolled high blood pressure 02/07/2024 Hyperlipidemia LDL goal <100 (ICD-10 - [...] Insured Coverage Start Date Coverage End Date [facility] [employer] [address] [place] [phone] [id number] SELENA FOSTER Self - patient is the insured Medical (General) History Medical History History ICD Code Hypertension Hyperlipidemia Anxiety Depression Cervical Cancer Asthma Surgical History Surgery Date(Month/Year) appendix removal partial hysterectomy Hospitalization History Reason Date(Month/Year) surgeries
--- OUTSIDE RECORDS SUMMARY | 2024-10-20 13:19 | XMS_ITS ---
Author Organization [facility] Shahnaz hernandez Billing Info Address [address] [place] [id number] Care Team Providers Care Residential Collections Name Role Phone NICOLETTE DUMONT [phone] Allergies No Known Allergies REASON FOR VISIT 1 Year F/U Medications Medication SIG (Take, Route, Frequency, Duration) Notes Start Date End Date Status Symbicort Not-Taking Atorvastatin Calcium 40 MG 1 tablet Orally Once a day for 90 days Active Propranolol HCl 10 MG 1 tablet Orally On ce a day Active Omeprazole 20 MG as directed Orally O nce a day Active Lisinopril 10 MG 1 tablet Orally Once a day Active BusPIRone HCl 10 MG 1 tablet Orally Twic e a day Active Albuterol Sulfate 108 (90 Base) MCG/ACT 1 puff as needed Orally every 4 hrs Active Social History Tobacco Use: Social History Observation Description Date Details (start date - stop date) Never Smoker NA - NA Tobacco Status: Question Answer Notes Patient is a never smoker Vital Signs Height 62 in 09/06/2024 Weight 134 lbs 09/06/2024 BMI 24.51 kg/m2 09/06/2024 Blood pressure systolic 121 mm Hg 09/07/19 25 Blood pressure diastolic 87 mm Hg 025 Respiratory Rate 16 /min 09/06/2024 Oximetry 99 09/06/2024 Procedures Procedure Date Ordered Date Performed Result Body Sit e EKG W/ INTERPRETATION (98095) IH 09/06/2024 09/06/2024 N/A Encounters Encounter Location Date Provider Diagnosis [id number] [facility] [address] [place], [place] [id number] 09/06/2024 NICOLETTE DUMONT Coronary artery calcification I25.10 ; Essential hypertension I10 and Body mass index [BMI] 24.0-24.9, adult Z68.24 Assessments Encounter Date Diagnosis (ICD Code) Assessment Notes Treatment Notes Treatment Clinical Notes Section Notes 09/06/2024 Coronary artery calcification (ICD-10 - I25.10) Labs reviewed with patient, 2D echo results review with patient, continue with current medical therapy. Follow-up in 1 year. 09/06/2024 Essential hypertension (ICD-10 - I10) Labs reviewed with patient, 2D echo results review with patient, continue with current medical therapy. Follow-up in 1 year. 09/06/2024 Body mass index [BMI] 24.0-24.9, adult (ICD-10 - Z68.24) Labs reviewed with patient, 2D echo results review with patient, continue with current medical therapy. Follow-up in 1 year. Plan Of Treatment Next Appt Details Follow Up: 1 Year, Reason: Provider Name:NICOLETTE DUMONT, 09/06/2025 10:00:00 AM, [address], [place] [address], [place], [place], [id number], Progress Notes * Oliver ALMANZARB:[birth year] (48 yo F)Acc No.[id number]:09/06/2024 PROGRESS NOTE Patient: Chaya IZAGUIRREAGGJeevan Avelina External Provider: Sarkis DUMONT MD :1975 A ge:48 Y S ex:Female Date:09/06/2024 C #:[id number] Address:[address] [place] [address], [id number] Subjective: * Chief Complaints: * 1 Year F/U * HPI: D epression Screening: PHQ-2 (2015 Edition) L ittle interest or pleasure in doing things? N ot at all, F eeling down, depressed, or hopeless? N ot at all, T otal Score 0 . P atient History: This is a very pleasant 48-year-old female with multiple risk factors for atherosclerotic coronary artery disease that include family history, hypertension, and hyperlipidemia presents to the clinic for risk stratification. Patient states that her father who is 67 years old just secondary to cardiovascular disease. Patient does not endorse any exertional chest pain pressure heaviness. She states that she walks a mi to mi and have 4-5 days a week without any significant shortness of breath. She also denies any claudication. She states that she has a sister who was just diagnosed with peripheral arterial disease. 2D echo completed on 08/19/2022 that showed preserved LV systolic and diastolic function with left ventricular ejection fraction estimated at 60-65%, no LVH, no significant valvular disease. Patient did have CTA of the coronaries completed on 10/27/2022 that showed a calcium score of 70 a which places the patient at intermediate risk. There was no soft or hard plaque of the LAD, LCX, left main, or RCA. There was some calcification in the LAD with no significant stenosis. Labs from 2023 showed Total cholesterol was 141, HDL 64, triglycerides 49, LDL was 63. Her nmr for her lipid panel showed that her LDL is mostly large particle size. A small particle size was less than normal. Patient here for routine cardiovascular visit. She offers no complaints. She does not endorse any exertional symptoms. 2D echo completed on 09/06/2024 shows preserved LV and RV systolic function with a left ventricular ejection fraction estimated at 60-65%, normal diastolic function, no elevated RVSP, and no significant valvular disease. This is essentially unchanged from previous 2D echo. Labs from 2024 showed total cholesterol 166, HDL 62, triglycerides of 67, LDL 89, and hemoglobin A1c of 5.1%. ECG completed shows sinus rhythm with a ventricular rate of 74 beats per minute, no Q-waves, and no acute ST segment changes. * ROS: G eneral ROS: Constitutional: D enies:. D ermatology/Integumentary:?Negative for: new lesions or rashes. H EENT: N egative for:, drainage, tearing, itching, pain. R mert/Pulmonology: N egative for:, chest pain with breathing, chest pain with breathing, cough. C ardiology: N egative for:, angina, chest pain, congestive heart failure, edema, orthopnea/PND, palpitations, shortness of breath with exertion. G astroenterology: N egative for:, abdominal pain, blood in stool, constipation, diarrhea, dysphagia. M usculoskeletal:?Negative for:, joint pain, joint redness, muscle pain. N eurology: N egative for:, balance difficulty, confusion, dizziness, gait abnormality, headaches, paralysis. P sychology: D enies:. E ndocrinology: N egative for:, chills, hair loss, hyperactive, intolerance to cold, intolerance to heat. * Medical History: * Surgical History: a ppendectomy hysterectomy, partial * Hospitalization/Major Diagno stic Procedure: D enies Past Hospitalization * Family History: N on-Contributory. * Social History: A lcohol Use P atient d oes not use alcohol. T obacco Status P atient is a never smoker. * Medications: T akingAlbuterol Sulfate 108 (90 Base) MCG/ACT Aerosol Powder Breath Activated 1 puff as needed Orally every 4 hrs Atorvastatin Calcium 40 MG Tablet 1 tablet Orally Once a day BusPIRone HCl 10 MG Tablet 1 tablet Orally Twice a day Lisinopril 10 MG Tablet 1 tablet Orally Once a day Omeprazole 20 MG Capsule Delayed Release as directed Orally Once a day Propranolol HCl 10 MG Tablet 1 tablet Orally Once a day Taking Albuterol Sulfate 108 (90 Base) MCG/ACT Aerosol Powder Breath Activated 1 puff as needed Orally every 4 hrs Taking Atorvastatin Calcium 40 MG Tablet 1 tablet Orally Once a day Taking BusPIRone HCl 10 MG Tablet 1 tablet Orally Twice a day Taking Lisinopril 10 MG Tablet 1 tablet Orally Once a day Taking Omeprazole 20 MG Capsule Delayed Release as directed Orally Once a day Taking Propranolol HCl 10 MG Tablet 1 tablet Orally Once a day Not-TakingSymbicort Medication List reviewed and reconciled with the patientNot-Taking Symbicort Medication List reviewed and reconciled with the patient * Allergies: N .K.A.no[Allergies Verified] Objective: * Vitals: H t: 62 in, Ht-cm: 157.48 cm, Wt: 134 lbs, Wt-k.78 kg, BMI:24.51, Weight Change: -2 lbs, Body Surface Area: 1.63, BP:121/87, Pulse sittin, Respiratory Rate:16, Oxygen sat %:99, Pain scale: 0. * Examination: G eneral Examination: Constitutional: alert and oriented, , well developed and well nourished, no acute distress . Derm/Integumentary: normal, no rash, no rash or skin lesions. HEENT: Head - NC/AT, PERRLA, EOMI. Neck: s upple, no lymphadenopathy, no carotid bruit. Respiratory: c lear to auscultation bilaterally, no wheezes/rhonchi/rales. Heart: S 1, S2; n o S 3/S4; n o murmurs or rubs. Gastrointestinal: n o masses palpated, no hepatosplenomegaly, . Musculoskeletal: n ormal, no edema, cyanosis, clubbing, pulses 2+ over 4. Neurology: n on-focal exam. Assessment: * Assessment: 1. C oronary artery calcification - I25.10 (Primary) 2 . E ssential hypertension - I10 3 . B fabio mass index [BMI] 24.0-24.9, adult - Z68.24 ? Labs reviewed with patient, 2D echo results review with patient, continue with current medical therapy. Follow-up in 1 year. Plan: * Treatment: 2. E ssential hypertension P rocedure: EKG W/ INTERPRETATION (67835) IH (Performed Date - 09/06/2024) * Procedure Codes: 3 074F SYST BP LT 130 MM [id number] DIAST BP <80 MM [id number] EKG COMPLETE * Preventive Medicine: Quality Measures: F all Risk Assessment: D ate of Screening Completed: 0 09/06/2024, I ncreased Fall Risk Factors: N o fall risk factors , H istory Falls in Past Year: N o falls in the past year. * Follow Up: 1 Year * Care Plan Details* * Sign off status: Completed true * Provider: Sarkis DUMONT MD Date: 0 09/06/2024 Generated for Teresita frederick/Hoda/Aneeshitting on: 0 10/20/2024 02:19 PM EDT History and Physical Notes * HPI (History of Present Illness) Category Sub-Category Detail Notes Category Not es Depression Screening PHQ-2 (2015 Edition) Little interest or pleasure in doing things?: Not at all Feeling down, depressed, or hopeless?: N ot at all Total Score: 0 Patient History This is a very pleasant 48-year-old female with multiple risk factors for atherosclerotic coronary artery disease that include family history, hypertension, and hyperlipidemia presents to the clinic for risk stratification. Patient states that her father who is 67 years old just secondary to cardiovascular disease. Patient does not endorse any exertional chest pain pressure heaviness. She states that she walks a mi to mi and have 4-5 days a week without any significant shortness of breath. She also denies any claudication. She states that she has a sister who was just diagnosed with peripheral arterial disease. 2D echo completed on 08/19/2022 that showed preserved LV systolic and diastolic function with left ventricular ejection fraction estimated at 60-65%, no LVH, no significant valvular disease. Patient did have CTA of the coronaries completed on 10/27/2022 that showed a calcium score of 70 a which places the patient at intermediate risk. There was no soft or hard plaque of the LAD, LCX, left main, or RCA. There was some calcification in the LAD with no significant stenosis. Labs from 2023 showed Total cholesterol was 141, HDL 64, triglycerides 49, LDL was 63. Her nmr for her lipid panel showed that her LDL is mostly large particle size. A small particle size was less than normal. Patient here for routine cardiovascular visit. She offers no complaints. She does not endorse any exertional symptoms. 2D echo completed on 09/06/2024 shows preserved LV and RV systolic function with a left ventricular ejection fraction estimated at 60-65%, normal diastolic function, no elevated RVSP, and no significant valvular disease. This is essentially unchanged from previous 2D echo. Labs from 2024 showed total cholesterol 166, HDL 62, triglycerides of 67, LDL 89, and hemoglobin A1c of 5.1%. ECG completed shows sinus rhythm with a ventricular rate of 74 beats per minute, no Q-waves, and no acute ST segment changes. Examination Category Sub-Category Detail Notes Category Not es General Examination HEENT: Head - NC/AT, PERRLA, EOMI Neck: supple, no lymphaden opathy, no carotid bruit Heart: S1, S2;?no?S3/S4;?no murmurs or rubs Respiratory: clear to auscultatio n bilaterally, no wheezes/rhonchi/rales Gastrointestinal: no masses palpated, no hepatosplenomegaly, Constitutional: alert and oriented, , well developed and well nourished, no acute distress Derm/Integumentary: normal, no rash, no rash or skin lesions Neurology: non-focal exam Musculoskeletal: normal, no edema, cy anosis, clubbing, pulses 2+ over 4
--- OUTSIDE RECORDS SUMMARY | 2024-10-20 13:19 | XMS_ITS | Clinical Summary ---
Author Organization [facility] Address [address] [place] [address] Care Team Providers Care Insurance Follow Up Rep Name Role Phone Ravi Osborne Primary Care Provider Unavailab le Source Comments [facility],non-owned Affiliates and Associated Physician Practices is amultiple site organization consisting of ambulatory clinics and hospital sitesin [place], [place], [place] and [place]. This disclosure is being madepursuant to the Care Everywhere program and may not contain all information available regarding this patient. Last updated 18.[facility] Allergies Active Allergy Reactions Criticality Noted Date Comments Ciprofloxacin Other Low 09/11/2019 Patient doesn't remember what reaction she had. Hydrocodone-Acetaminophen Rash Medium 09/11/2019 Propoxyphene N-Apap Vomiting Medium 09/11/2019 Tramadol Vomiting 01/11/2020 Medications * Be aware that medications may not be up to date on this document. Alwaysverify current medications with the patient. albuterol HFA (PROVENTIL;VENT NORMAN;PROAIR) 108 (90 Base) MCG/ACT inhaler Inhale 1 puff by mouth as needed 0 Active SYMBICORT 160-4.5 MCG/ACT inhaler Inhale 1 puff by mouth once daily 0 Active montelukast (SINGULAIR) 10 MG tablet Take 10 mg by mouth at bedtime 0 Active SUMAtriptan (IMITREX) 100 MG tablet Take 1 tablet by mouth as needed 0 Active Multiple Vitamins-Minera ls (HAIR SKIN NAILS PO) Take 2 tablets by mouth once daily Active ASPIRIN 81 PO Take 1 tablet by mouth once daily Active Multiple Vitamins-Minera ls (ALIVE WOMENS ENERGY PO) Take 1 tablet by mouth once daily Active calcium 500 mg TABS tablet Take 500 mg by mouth 2 times daily with morning and evening meal Active Multiple Vitamins-Minera ls (THRIVE FOR LIFE WOMENS) TABS Take 1 tablet by mouth once daily Active buPROPion XL 24hr (WELLBUTRIN-XL) 150 MG tablet bupropion HCl XL 150 mg 24 hr tablet, extended release TAKE 1 TABLET BY MOUTH ONCE DAILY IN THE MORNING Active busPIRone (BUSPAR) 10 MG tablet buspirone 10 mg tablet TAKE 1 TABLET BY MOUTH EVERY 12 HOURS NEEDED Active propranolol (INDERAL) 20 MG tablet propranolol 20 mg tablet Take 1 tablet(s) twice a day by oral route as directed for 90 days. Active ibuprofen (MOTRIN) 600 MG tablet Take 1 tablet by mouth every 6 hours 40 tablet 0 Active Additional Information Patient not taking.Reported on 01/26/2020 docusate sodium (COLACE) 100 MG capsule Take 1 capsule by mouth 2 times daily Hold for loose stools 30 capsule 0 Active Additional Information Patient not taking.Reported on 01/26/2020 acetaminophen-c odeine (TYLENOL #3) 300-30 MG tablet Take 1 tablet by mouth every 4 hours as needed 20 tablet 0 Active Additional Information Patient not taking.Reported on 01/26/2020 ondansetron, disintegrating, (ZOFRAN ODT) 4 MG tablet Take 1 tablet by mouth every 6 hours as needed for Nausea/Vomiting Allow tablet to dissolve on the tongue 10 tablet 0 Active Additional Information Patient not taking.Reported on 01/26/2020 acetaminophen-c odeine (TYLENOL #3) 300-30 MG tablet Take 1 tablet by mouth every 6 hours as needed for Pain 15 tablet 0 Active Additional Information Patient not taking.Reported on 01/26/2020 Active Problems Problem Noted Date Diagnosed Date DIEGO III (cervical intraepith elial neoplasia grade III) with severe dysplasia 10/12/2019 Family History Medical History Relation Name Comments Cancer - Other Maternal Grandmother Relation Name Status Comments Maternal Grandmother Cervica l Social History Tobacco Use Types Packs/Day Years Used Date Smoking Tobacco: Former Cigarettes Smokeless Tobacco: Never Tobacco Cessation:Counseling Given: No Comments:quit in 2009 Alcohol Use Standard Drinks/Week Comments Yes 3 (1 standard drink = 0.6 oz pur e alcohol) occ AUDIT-C Answer Date Recorded Q1: How often do you have a drink containing alc ohol? 2-3 times a week 09/11/2019 Q2: How many drinks containi ng alcohol do you have on a typical day when you are drinking? 3 or 4 09/11/2019 Q3: How often do you have si x or more drinks on one occasion? Weekly 09/11/2019 Comments No Sex and Gender Information Value Date Recorded Sex Assigned at Not on file Legal Sex Female 9:15 AM CDT Gender Identity Not on file Sexual Orientation Not on file Last Filed Vital Signs Vital Sign Reading Time Taken Comments Blood Pressure 112/69 01/11/2020 1:31 PM CDT Pulse 85 01/11/2020 1:31 PM CDT Temperature 36.3 C (97.3 F) 01/11/2020 1:31 PM CDT Respiratory Rate 16 01/11/2020 1:31 PM CDT Oxygen Saturation 99% 01/11/2020 1:31 PM CDT Inhaled Oxygen Concentration - - Weight 73.9 kg (163 lb) 01/11/2020 5:55 AM CDT Height 157.5 cm (5' 2) 01/11/2020 5:55 AM CDT Body Mass Index 29.81 01/11/2020 5:55 AM CDT Plan of Treatment Health Maintenance Due Date Last Done Comments COLOGUARD (AGES 45-75) - COL ON CA SCREENING 1974 COLON MONITORING 1974 COLONOSCOPY - COLON CA SCREENING 1974 CT COLONOGRAPHY - COLON CA SCREENING 1974 Colorectal Cancer Screening 1974 FIT - COLON CA SCREENING 1974 FLEX SIG - COLON CA SCREENING 1974 LIPID TESTING 1974 MAMMOGRAM 1974 HIV SCREENING 1989 HEPATITIS C SCREENING 09/14/1992 DTAP/TDAP/TD VACCINES (1 - Tdap) 1993 HEPATITIS B VACCINE (1 of 3 - 19+ 3-dose series) 1993 SCREENING FOR DIABETES 01/08/2023 01/09/2020 COVID-19 VACCINE (1 - 2023-2 5 season) 2024 DEPRESSION SCREENING 05/10/2024 PNEUMOCOCCAL VACCINE 50+ (1 of 1 - PCV) 2024 ZOSTER VACCINE (1 of 2) 2024 INFLUENZA VACCINE (Season Ended) 2025 HIB VACCINE Aged Out No longer eligi ble based on patient's age to complete this topic HPV VACCINE Aged Out No longer eligi ble based on patient's age to complete this topic MENINGOCOCCAL (Group B) VACC INE SHARED DECISION-MAKING Aged Out No longer eligibl e based on patient's age to complete this topic MENINGOCOCCAL GROUPS A/C/Y/W VACCINE Aged Out No longer eligible b ased on patient's age to complete this topic Procedures Procedure Name Priority Date/Time Associated Diagnosis Comments COMPREHENSIVE METABOLIC PANEL STAT 01/09/2020 7:05 AM CDT Pre-op testing from Last 3 Months or Most Recently Relevant to Health Maintenance Results * COMPREHENSIVE METABOLIC PANEL (01/09/2020 7:05 AM CDT) Glucose 102 70 - 105 mg/dL 01/09/2020 8:01 AM CDT [facility] Sodium 137 136 - 145 mmol/L 01/09/2020 8:01 AM CDT [facility] Potassium 4.0 3.5 - 5.1 mmol/L 01/09/2020 8:01 AM CDT [facility] Chloride 104 98 - 107 mmol/L 01/09/2020 8:01 AM CDT [facility] CO2 24 23 - 31 mmol/L 01/09/2020 8:01 AM CDT [facility] Calcium 8.6 8.4 - 10.4 mg/dL 01/09/2020 8:01 AM CDT [facility] Anion Gap 9 8 - 16 mmol/L 01/09/2020 8:01 AM CDT [facility] BUN 10 7 - 18.7 mg/dL 01/09/2020 8:01 AM CDT [facility] Creatinine 0.78 0.57 - 1.11 mg/dL 01/09/2020 8:01 AM [facility] Alkaline Phosphatase 42 40 - 150 U/L 01/09/2020 8:01 AM CDT [facility] ALT 15 0 - 61 U/L 01/09/2020 8:01 AM CDT [facility] AST 19 5 - 34 U/L 01/09/2020 8:01 AM CDT [facility] Protein Total 7.3 6.4 - 8.3 gm/dL 01/09/2020 8:01 AM CDT [facility] Albumin 4.0 3.5 - 5.2 gm/dL 01/09/2020 8:01 AM CDT [facility] Bilirubin Total 0.6 0.2 - 1.0 mg/dL 01/09/2020 8:01 AM CDT [facility] eGFR by MDRD >60 >60 mL/min/1.7 3m2 01/09/2020 8:01 AM CDT [facility] eGFR by MDRD >60 >60 mL/min/1.7 3m2 01/09/2020 8:01 AM CDT [facility] Blood BLOOD SPECIMEN / Unknown Venipuncture / Unknown 01/09/2020 7:05 AM CDT 01/09/2020 7:32 AM CDT Sheldon Reyes MD LAB - CHEMISTRY ORDERABLES Final Result [facility] [address] [place] [address] from Last 3 Months or Most Recently Relevant to Health Maintenance Insurance [facility] [employer] Care Teams Insurance Follow Up Rep Relationship Specialty Start Date End Date Ravi Osborne Update Information PCP - General 10/23/19
--- OUTSIDE RECORDS SUMMARY | 2024-10-20 13:20 | XMS_ITS ---
Author Organization [facility] Shahnaz hernandez Billing Info Address [address] [place] [address] Care Team Providers Care Hair Colorist Name Role Phone NEMESIO YANES Unavailable [phone] Results Component Value Reference Range Notes US- ECHO COMPLETE ([id number])(Sc Image-SOECHOUS) Reviewed date:09/22/2024 09:03:04 AM Interpretation: Performing Lab: Notes/Report: Transthoracic Echocardiographic Report Patient Name: SELENA ALMANZAR Account #: : 1975 (48y 11m) Gender: F Study Date: 09/06/2024 08:59:45 AM Ht(Cm): 157 Wt(Kg): 59 BSA: 1.6 Tech: Fawad mejias [facility] Location: [id number] Order Provider: NEMESIO YANES Heart Rate: 80 BP: 124/89 Quality: The study images were of technically good quality. Ref Provider: NEMESIO YANES PROCEDURES: Echocardiographic Report: Transthoracic complete echo, 2D, spectral and tissue Doppler, color flow Doppler, M-mode. INDICATIONS: IHD (ischemic heart disease) - I25.9 Screening for ischemic heart disease (IHD) - Z13.6. CONCLUSIONS: 1. Normal left ventricle size and morphology. Normal left ventricular size. Normal left ventricular ejection fraction. LV Ejection Fraction is 60-65 %. 2. Normal right ventricular size. Normal right ventricular systolic function. RV systolic pressure could not be determined due to the lack of a tricuspid regurgitation Doppler signal. 3. Normal left atrial size and morphology. 4. Normal mitral valve. Diastolic Dysfunction: Normal. 5. Normal aortic valve. Trileaflet aortic valve. 6. Normal tricuspid valve. FINDINGS: Left Ventricle: Normal left ventricle size and morphology. Normal left ventricular size. Normal left ventricular ejection fraction. LV Ejection Fraction is 60-65 %. Right Ventricle: Normal right ventricular size. Normal right ventricular systolic function. RV systolic pressure could not be determined due to the lack of a tricuspid regurgitation Doppler signal. Left Atrium: Normal left atrial size and morphology. Right Atrium: Normal right atrial size and morphology. Atrial Septum: The interatrial septum is normal in appearance. Mitral Valve: Normal mitral valve. Diastolic Dysfunction: Normal. Aortic Valve: Normal aortic valve. Trileaflet aortic valve. Tricuspid Valve: Normal tricuspid valve. Pulmonic Valve: Normal pulmonic valve. Pericardium: Normal pericardium with no pericardial effusion. Aorta: Normal aortic root. IVC: Normal inferior vena cava. Pulmonary Artery: Normal pulmonary artery size. Measurements: 2D/M Mode Doppler Measurement Value Normal Range Measurement Value Normal Range LVIDd 2D 3.86 [ 4.20 - 5.80 ] cm AV Peak Christian 1.03 [ 1.00 - 1.70 ] m/sec LVIDs 2D 2.40 [ 4.20 - 5.80 ] cm AV Mean Christian 0.78 [ 0.70 - 0.90 ] m/sec LV FS 2D 37.81 [ 25.00 - 43.00 ] % AV Peak PG 4.22 [ 2.00 - 9.00 ] mmHg IVSd 2D 0.83 [ 0.60 - 1.00 ] cm AV Mean PG 2.64 [ 2.00 - 4.00 ] mmHg LVPWd 2D 0.80 [ 0.60 - 1.00 ] cm AV VTI 0.24 cm IVS/LVPW 2D 1.04 % ERNESTO Vmax 2.78 cm2 LV Mass 2D 92.3 g ERNESTO VTI 2.36 cm LV Mass Index 2D 57.7 LVOT Area 2.83 cm2 RWT 29.90 LVOT Peak Christian 1.01 [ 0.70 - 1.10 ] m/sec EDV 2D 64.3 LVOT Mean Christian 0.67 [ 0.60 - 0.80 ] m/sec ESV 2D 20.2 LVOT Peak PG 4.06 [ 2.00 - 6.00 ] mmHg EF Teich 2D 69 LVOT Mean PG 2.05 [ 1.00 - 3.00 ] mmHg RVDd 2D 2.71 [ 2.00 - 4.20 ] cm LVOT VTI 0.20 [ 20.00 - 30.00 ] cm TAPSE 1.4 [ 1.5 - 2.0 ] cm LVOT/AV VTI 0.83 Asc Ao Diam 2D 2.94 [ 2.60 - 3.40 ] cm LVOT Diam 1.9 cm MV E Peak Christian 0.68 [ 0.60 - 1.30 ] m/sec MV A Peak Christian 0.84 [ 1.00 - 1.20 ] m/sec MV E/A 0.81 ratio MV PHT 61 ms MVA PHT 3.61 cm2 MV Decel Time 209.96 [ 104.00 - 258.00 ] ms Med E` Christian 0.07 m/s Lat E` Christian 0.12 m/s Medial E/E` 9.71 Lateral E/E' 5.67 Average E/E` 7.69 PV Peak Christian 0.73 [ 0.40 - 0.80 ] m/sec PV Peak PG 2.15 mmHg Measurement Value Normal Range Measurement Value Normal Range 2D/M Mode Doppler Electronically Signed By: Nemesio Yanes MD, [facility] 09/06/2024 10:11:56 AM EDT Transthoracic Echoca rdiographic Report Patient Name: SELENA DEE Account #: : 1975 (48y 11m) Gender: F Study Date: 09/06/2024 08:59:45 AM Ht(Cm): 157 Wt(Kg): 59 BSA: 1.6 Tech: Fawad mejias [facility] Location: [id number] Order Provider: NEMESIO YANES Heart Rate: 80 BP: 1 Quality: The study images were of technically good quality. Ref Provider: NEMESIO YANES PROCEDURES: Echocardiographic Re port: Transthoracic complete echo, 2D, spectral and tissue Doppler, color flow Doppler, M-mode. INDICATIONS: IHD (ischemic heart disease) - I25.9 Screening for ischem ic heart disease (IHD) - Z13.6. CONCLUSIONS: 1. Normal left ventr icle size and morphology. Normal left ventricular size. Normal left ventricular ejection fraction. LV Ejection Fraction is 60-65 %. 2. Normal right vent ricular size. Normal right ventricular systolic function. RV systolic pressure could not b e determined due to the lack of a tricuspid regurgitation Doppler signal. 3. Normal left atria l size and morphology. 4. Normal mitral melanie ve. Diastolic Dysfunction: Normal. 5. Normal aortic melanie ve. Trileaflet aortic valve. 6. Normal tricuspid valve. FINDINGS: Left Ventricle: Norm al left ventricle size and morphology. Normal left ventricular size. Normal left ventricu lar ejection fraction. LV Ejection Fraction is 60-65 %. Right Ventricle: Nor mal right ventricular size. Normal right ventricular systolic function. RV systoli c pressure could not be determined due to the lack of a tricuspid regurgitation Doppler signal. Left Atrium: Normal left atrial size and morphology. Right Atrium: Normal right atrial size and morphology. Atrial Septum: The i nteratrial septum is normal in appearance. Mitral Valve: Normal mitral valve. Diastolic Dysfunction: Normal. Aortic Valve: Normal aortic valve. Trileaflet aortic valve. Tricuspid Valve: Nor mal tricuspid valve. Pulmonic Valve: Norm al pulmonic valve. Pericardium: Normal pericardium with no pericardial effusion. Aorta: Normal aortic root. IVC: Normal inferior vena cava. Pulmonary Artery: No rmal pulmonary artery size. Measurements: 2D/M Mode Doppler Measurement Value No rmal Range Measurement Value Normal Range LVIDd 2D 3.86 [ 4.20 - 5.80 ] cm AV Peak Christian 1.03 [ 1.00 - 1.70 ] m/sec LVIDs 2D 2.40 [ 4.20 - 5.80 ] cm AV Mean Christian 0.78 [ 0.70 - 0.90 ] m/sec LV FS 2D 37.81 [ 25. 00 - 43.00 ] % AV Peak PG 4.22 [ 2.00 - 9.00 ] mmHg IVSd 2D 0.83 [ 0.60 - 1.00 ] cm AV Mean PG 2.64 [ 2.00 - 4.00 ] mmHg LVPWd 2D 0.80 [ 0.60 - 1.00 ] cm AV VTI 0.24 cm IVS/LVPW 2D 1.04 % A VA Vmax 2.78 cm2 LV Mass 2D 92.3 g AV A VTI 2.36 cm LV Mass Index 2D 57. 7 LVOT Area 2.83 cm2 RWT 29.90 LVOT Peak Christian 1.01 [ 0.70 - 1.10 ] m/sec EDV 2D 64.3 LVOT Laila n Christian 0.67 [ 0.60 - 0.80 ] m/sec ESV 2D 20.2 LVOT Pea k PG 4.06 [ 2.00 - 6.00 ] mmHg EF Teich 2D 69 LVOT Mean PG 2.05 [ 1.00 - 3.00 ] mmHg RVDd 2D 2.71 [ 2.00 - 4.20 ] cm LVOT VTI 0.20 [ 20.00 - 30.00 ] cm TAPSE 1.4 [ 1.5 - 2. 0 ] cm LVOT/AV VTI 0.83 Asc Ao Diam 2D 2.94 [ 2.60 - 3.40 ] cm LVOT Diam 1.9 cm MV E Peak Christian 0.68 [ 0.60 - 1.30 ] m/sec MV A Peak Christian 0.84 [ 1.00 - 1.20 ] m/sec MV E/A 0.81 ratio MV PHT 61 ms MVA PHT 3.61 cm2 MV Decel Time 209.96 [ 104.00 - 258.00 ] ms Med E` Christian 0.07 m/s Lat E` Christian 0.12 m/s Medial E/E` 9.71 Lateral E/E' 5.67 Average E/E` 7.69 PV Peak Christian 0.73 [ 0 .40 - 0.80 ] m/sec PV Peak PG 2.15 mmHg Measurement Value No rmal Range Measurement Value Normal Range 2D/M Mode Doppler Electronically Signed By: Nemesio Yanes MD, FAC 09/06/2024 10:11:56 AM EDT REASON FOR VISIT Echocardiogram Encounters Encounter Location Date Provider Diagnosis [id number] [address] [place], [place] [id number] 09/06/2024 NEMESIO YANES IHD (ischemic heart disease) I25.9 and Screening for ischemic heart disease (IHD) Z13.6 Assessments Encounter Date Diagnosis (ICD Code) Assessment Notes Treatment Notes Treatment Clinical Notes Section Notes 09/06/2024 IHD (ischemic heart disease) (ICD-10 - I25.9) 09/06/2024 Screening for ischemic heart disease (IHD) (ICD-10 - Z13.6) Plan Of Treatment Next Appt Details Provider Name:NEMESIO YANES, 09/06/2025 10:00:00 AM, [address], [place], [place], [id number], Progress Notes * Oliver ALMANZARB:[birth year] (48 yo F)Acc No.[id number]:09/06/2024 PROGRESS NOTE Patient: Selena JIMENES External Provider: Sarkis YANES MD :1975 A ge:48 Y S ex:Female Date:09/06/2024 C HN#:[id number] Address:[address] [place] [address], [facility] [id number] Subjective: * Chief Complaints: * 1 . Echocardiogram. * Medical History: Objective: * Vitals: Assessment: * Assessment: 1. I HD (ischemic heart disease) - I25.9 2 . S creening for ischemic heart disease (IHD) - Z13.6 Plan: * Treatment: 2. S creening for ischemic heart disease (IHD) I maging: US- ECHO COMPLETE ([id number])(ScImage-SOECHOUS) * Procedure Codes: 9 3306 TTE W/DOPPLER COMPLETE * * Sign off status: Completed true * Provider: Sarkis YANES MD Date: 09/06/2024 Generated for Teresita frederick/Hoda/eTransmitting on: 10/20/2024 02:19 PM EDT
--- OUTSIDE RECORDS SUMMARY | 2024-10-20 13:20 | XMS_ITS | Patient Health Record ---
Author Organization [facility] Shahnaz hernandez Billing Info Address [address] [place] [address] Care Team Providers Care Jewel Bearing Grinder Name Role Phone JULIA NICOLETTE Ward [phone] Allergies No Known Allergies Reason For Referral No Information Medications Medication SIG (Take, Route, Frequency, Duration) Notes Start Date End Date Status Symbicort Not-Taking BusPIRone HCl 10 MG 1 tablet Orally Twic e a day Active Albuterol Sulfate 108 (90 Base) MCG/ACT 1 puff as needed Orally every 4 hrs Active Atorvastatin Calcium 40 MG 1 tablet Orally Once a day for 90 days Active Propranolol HCl 10 MG 1 tablet Orally On ce a day Active Omeprazole 20 MG as directed Orally O nce a day Active Lisinopril 10 MG 1 tablet Orally Once a day Active Social History Tobacco Use: Social History Observation Description Date Details (start date - stop date) Never Smoker NA - NA Tobacco Status: Question Answer Notes Patient is a never smoker Vital Signs Respiratory Rate 16 /min 09/06/2024 Oximetry 99 09/06/2024 Blood pressure diastolic 87 mm Hg 09/06/2024 Height 62 in 09/06/2024 Blood pressure systolic 121 mm Hg 09/06/2024 Weight 134 lbs 09/06/2024 BMI 24.51 kg/m2 09/06/2024 Procedures Procedure Date Ordered Date Performed Result Body Sit e EKG W/ INTERPRETATION (88472) IH 09/06/2024 09/06/2024 N/A Encounters Encounter Location Date Provider Diagnosis [id number] [address] [place], [place] [id number] 09/06/2024 NICOLETTE DUMONT IHD (ischemic heart disease) I25.9 and Screening for ischemic heart disease (IHD) Z13.6 [id number] [facility] [address] [place], [place] [id number] 09/06/2024 NICOLETTE DUMONT Coronary artery calcification I25.10 ; Essential hypertension I10 and Body mass index [BMI] 24.0-24.9, adult Z68.24 Assessments Encounter Date Diagnosis (ICD Code) Assessment Notes Treatment Notes Treatment Clinical Notes Section Notes 09/06/2024 IHD (ischemic heart disease) (ICD-10 - I25.9) 09/06/2024 Coronary artery calcification (ICD-10 - I25.10) Labs reviewed with patient, 2D echo results review with patient, continue with current medical therapy. Follow-up in 1 year. 09/06/2024 Essential hypertension (ICD-10 - I10) Labs reviewed with patient, 2D echo results review with patient, continue with current medical therapy. Follow-up in 1 year. 09/06/2024 Screening for ischemic heart disease (IHD) (ICD-10 - Z13.6) 09/06/2024 Body mass index [BMI] 24.0-24.9, adult (ICD-10 - Z68.24) Labs reviewed with patient, 2D echo results review with patient, continue with current medical therapy. Follow-up in 1 year. Plan Of Treatment Future Test Test Name Order Date CT CTA HRT ART W/ CALC 08/10/2022 COMPREHENSIVE METABOLIC PANEL (REFL) CUS KEYA ([id number]) 07/05/2023 LIPOPROTEIN FRACTIONATION NM R WITH LIPID PANEL (TRIGLYCERIDES/HDL-C)([id number]) 07/05/2023 Next Appt Details Provider Name:NICOLETTE DUMONT, 09/06/2025 10:00:00 AM, [address], [place], [place], [id number], Insurance Providers Payer Name Payer Address Payer Phone Subscriber Number Group Number Insured Name Patient Relationship to Insured Coverage Start Date Coverage End Date [facility] POS CHOICE PLUS [address] [facility] [place] [phone] [id number] Avelina Almanzar Self - patient is the insured 2 9 Medical (General) History Medical History History ICD Code asthma Cancer Depression High blood pressure Stomach or duodenal ulcer Surgical History Surgery Date(Month/Year) hysterectomy, partial appendectomy
--- OUTSIDE RECORDS SUMMARY | 2024-10-20 13:20 | XMS_ITS | Clinical Summary ---
Author Organization [facility] Address [address] [place] [address] Care Team Providers Care Rn Wound Care Name Role Phone Unavailable Primary Care Provider Unavailabl e Allergies No known active allergies Active Problems Problem Noted Date Diagnosed Date Hyperlipidemia 12/22/2022 Social History Tobacco Use Types Packs/Day Years Used Date Smoking Tobacco: Never Assessed Comments Unknown Sex and Gender Information Value Date Recorded Sex Assigned at Not on file Legal Sex Female 7:29 AM EDT Gender Identity Not on file Sexual Orientation Not on file Plan of Treatment Health Maintenance Due Date Last Done Comments Anxiety Screening 1992 Depression Screening 1992 HIV Screening 1992 Hepatitis C Screening 1992 DTaP,Tdap,Td Vaccine (1 - Tdap) 1993 Hepatitis B Vaccine (1 of 3 - 19+ 3-dose series) 09/19 Cervical Cancer Screening 09/20/[address] Colonography 09/20/2019 Cologuard (FIT-DNA) 09/20/2019 Colonoscopy 09/20/2019 Colorectal Cancer Screening 09/20/2019 Diabetes Screening 09/20/2019 Fecal Occult Blood 09/20/2019 Lipid Screening 09/20/2019 Sigmoidoscopy 09/20/2019 Covid-19 Vaccine (1 - 2023- season) 2024 Pneumococcal Vaccine: 50+ (1 of 1 - PCV) 2024 Shingrix Vaccine (1 of 2) 2024 Influenza Vaccine (Season Ended) 2025 Insurance [facility] CHOICE PLUS
--- OUTSIDE RECORDS SUMMARY | 2024-10-20 13:20 | XMS_ITS ---
Author Organization [facility] Shahnaz hernandez Billing Info Address [address] [place] [address] [place] [address] Care Team Providers Care Boilermaker Industrial Boilers Name Role Phone NICOLETTE DUMONT [phone] REASON FOR VISIT 1 year f/u Encounters Encounter Location Date Provider Diagnosis [id number] [address] [place], [place] [id number] 07/13/2024 NICOLETTE DUMONT Plan Of Treatment Next Appt Details Provider Name:NICOLETTE DUMONT, 09/06/2025 10:00:00 AM, [address], [place], [place], [id number], Progress Notes * Oliver ALMANZARB:[birth year] (49 yo F)Acc No.[id number]:07/13/2024 PROGRESS NOTE Patient: Chaya ANN Avelina GLOVER External Provider: Sarkis DUMONT MD :1975 A ge:48 Y S ex:Female Date:07/13/2024 C HN#:[id number] Address:[address] [facility] [facility] [place] [facility] Subjective: * Chief Complaints: * 1 . 1 year f/u. * Medical History: Objective: * Vitals: Assessment: Plan: * Treatment: * Care Plan Details* * This progress note has not b een verified nor is it considered complete until locked and signed by the provider. Sign off status: Pending * Provider: Sarkis DUMONT MD Date: 0 07/13/2024 Generated for Teresita frederick/Hoda/Aneeshitting on: 0 10/20/2024 02:19 PM EDT
== END 2024-10-20 13:17 | disposition home or self-care (01) ==
LOC: CHSIMG 13:17
PROVIDERS: PCP Obstetrics & Gynecology Gynecology; Visit Provider Obstetrics & Gynecology Gynecology
DX: Z12.31 Encounter for screening mammogram for malignant neoplasm of breast (principal)
CPT/HCPCS: 99199

== ENCOUNTER 2024-10-24 09:19 | Outpatient (CLI) | payer OTHER, SELFPAY ==
--- NOTE | ~2024-10-24 | MMUS_ITS ---
CORRECTED REPORT corrected examination description to MAULIK guzman crow implant BI w juany [facility] 10/24/24 This report was recreated on 10/24/24. Original report was EXAMINATION: MAULIK guzman crow implant BI w juany, US breast LT limited HISTORY: Palpable left breast lump TECHNIQUE: Additional 3-D tomosynthesis images of the breasts were performed and synthetic 2-D images were generated. CAD analysis was submitted and interpreted. High resolution Limited left breast ultrasound was performed. COMPARISON: Comparison to multiple prior studies sequentially, with oldest reviewed study dated 09/09/2016. BREAST PARENCHYMAL COMPOSITION: Not dense: There are scattered areas of fibroglandular density. FINDINGS: MAMMOGRAPHIC FINDINGS: There are bilateral subpectoral breast implants. There are no suspicious masses, calcifications or architectural distortion in either breast to suggest malignancy. ULTRASOUND: Limited left breast ultrasound: At 1:00, 3 cm from the nipple there is a 3 mm cyst. No suspicious masses in the left breast to suggest malignancy. IMPRESSION: 1. No evidence for malignancy in either breast. 2. Routine yearly screening mammogram and regular clinical breast examination are recommended. BI-RADS Category 2: Benign finding(s). Reviewed, dictated and finalized at location A. IMPRESSION: 1. No evidence for malignancy in either breast. 2. Routine yearly screening mammogram and regular clinical breast examination a re recommended. BI-RADS Category 2: Benign finding(s).
--- OUTSIDE RECORDS SUMMARY | 2024-10-24 10:01 | XMS_ITS | Clinical Summary ---
Author Organization [facility] Address [address] [place] [address] Care Team Providers Care Hotel Sales Manager Name Role Phone Unavailable Primary Care Provider [...] 2024 Influenza Vaccine (Season Ended) 2025 Insurance [facility] CHOICE PLUS
--- OUTSIDE RECORDS SUMMARY | 2024-10-24 10:01 | XMS_ITS | Clinical Summary ---
Author Organization [id number] Address [address] [place] [address] Care Team Providers Care Wash Rack Operator Name Role Phone Ravi Osborne Primary Care Provider Unavailab le Source Comments [id number],non-owned Affiliates and Associated Physician Practices is amultiple site organization consisting of ambulatory clinics and hospital sitesin [place], [place], [place]. This disclosure is being madepursuant to the Care Everywhere program and may not contain all information available regarding this patient. Last updated 18.[id number] Allergies Active Allergy Reactions Criticality Noted Date [...] - 105 mg/dL 01/09/2020 8:01 AM CDT [facility] Sodium 137 136 - 145 mmol/L 01/09/2020 8:01 AM CDT [facility] Potassium 4.0 3.5 - 5.1 mmol/L 01/09/2020 8:01 AM CDT [facility] Chloride 104 98 - 107 mmol/L 01/09/2020 8:01 AM CDT [facility] CO2 24 23 - 31 mmol/L 01/09/2020 8:01 AM CDT [facility] Calcium 8.6 8.4 - 10.4 mg/dL 01/09/2020 8:01 AM CDT [facility] Anion Gap 9 8 - 16 mmol/L 01/09/2020 8:01 AM CDT [facility] BUN 10 7 - 18.7 mg/dL 01/09/2020 8:01 AM CDT [facility] Creatinine 0.78 0.57 - 1.11 mg/dL 01/09/2020 8:01 AM [facility] Alkaline Phosphatase 42 40 - 150 U/L 01/09/2020 8:01 AM CDT [facility] ALT 15 0 - 61 [...] >60 mL/min/1.7 3m2 01/09/2020 8:01 AM CDT [facility] Blood BLOOD SPECIMEN / Unknown Venipuncture / Unknown 01/09/2020 7:05 AM CDT 01/09/2020 7:32 AM CDT Sheldon Reyes MD LAB - CHEMISTRY ORDERABLES Final Result [facility] [address] [place] [address] from Last 3 Months or Most Recently Relevant to Health Maintenance Insurance [facility] CIGNA CIGNA CIGNA Care Teams Wash Rack Operator Relationship Specialty Start Date End Date Ravi Osborne Update Information PCP - General 10/23/19
== END 2024-10-24 09:20 | disposition home or self-care (01) ==
LOC: CHSIMG 09:19
PROVIDERS: PCP Obstetrics & Gynecology Gynecology; Visit Provider Obstetrics & Gynecology Gynecology
DX: N63.23 Unspecified lump in the left breast, lower outer quadrant (principal)
CPT/HCPCS: 76642; 77062; 77066; G0279